=== PATIENT | female | born 1990 | race Caucasian/White ===

== ENCOUNTER 2017-10-28 11:35 | Emergency (ER) | payer OTHER ==
[2017-10-28] MEDS ORDERED: diphenhydrAMINE 50 MG Cap PO ONE (12:36)
--- NOTE | 2017-10-28 12:39 | EDM.PDOC ---
ED HPI GENERAL MEDICAL PROBLEM - General Chief Complaint: Allergic Reaction Stated Complaint: FACIAL SWELLING POSSIBLE ALLERGIC REACTION Time Seen by Provider: 10/28/17 12:20 Source of Information: Reports: Patient History Limitations: Reports: No Limitations - History of Present Illness INITIAL COMMENTS - FREE TEXT/NARRATIVE: 26 y/o F presents with facial swelling and pain. She has a history of severe acne and recently started new medication after seeing a keypuncher in [place]. She saw the keypuncher about 1 week ago. She had a phototherapy treatment at that time. She also started doxycycline, spironolactone, and a topical glycolic acid product. Starting two days ago she started to get a severe breakout and skin sensitivity on her face. She has subjective feeling of tightness and swelling of the facial skin under her chin and on her forehead. No additional new topical products. She was told to expect some facial pain and feeling like a minor sunburn after the phototherapy but was not expecting actual swelling. No fever. No oral lesions. No additional skin rash. No difficulty speaking or swallowing. No cough/wheezing. Face Pain Score (Numeric/FACES): 4 - Related Data Allergies Allergy/AdvReac Type Severity Reaction Status Date / Time ciprofloxacin [From Cipro] Allergy Hives Verified 10/28/17 11:43 heparin Allergy Hives Verified 10/28/17 11:43 iodine Allergy Hives Verified 10/28/17 11:43 levofloxacin [From Levaquin] Allergy Hives Verified 10/28/17 11:43 pentosan polysulfate sodium Allergy Hives Verified 10/28/17 11:43 [From Elmiron] Home Meds: Home Meds Doxycycline [Vibramycin] 100 mg PO DAILY 10/28/17 [History] Prednisone [IJD: predniSONE] 20 mg PO WITHBREAKFAST 10/28/17 [History] Spironolactone 100 mg PO DAILY 10/28/17 [History] Past Medical History - Past Health History Medical/Surgical History: Denies Medical/Surgical History Social & Family History - Tobacco Use Smoking Status *Q: Never Smoker - Recreational Drug Use Other Recreational Drug Type: patient states she has a medical marijuana card that she uses occasionally ED ROS ALLERGIC REACTION - Review of Systems Review Of Systems: See Below Constitutional: Denies: Fever HEENT: Reports: Other (facial pain) Respiratory: Denies: Shortness of Breath, Wheezing, Cough Cardiovascular: Reports: No Symptoms ED EXAM GENERAL NO PERIP PULSE - Physical Exam Exam: See Below Exam Limited By: No Limitations General Appearance: Alert, WD/WN, No Apparent Distress Eye Exam: Bilateral Eye: Normal Inspection Ears: Normal External Exam Nose: Normal Inspection Throat/Mouth: Normal Inspection, Normal Oropharynx, Normal Voice, No Airway Compromise Head: Atraumatic, Normocephalic, Other (diffuse severe comedomal and inflammatory acne primarily affecting chin, jaw line, and forehead. no area of confluent erythema or appreciable swelling or induration. no submandibular tenderness or swelling. ) Neck: Normal Inspection, Supple Respiratory/Chest: No Respiratory Distress Course - Vital Signs Last Recorded V/S: Last Vital Signs Temp 36.9 C 10/28/17 11:47 Pulse 66 10/28/17 12:50 Resp 18 10/28/17 12:50 BP 123/82 10/28/17 12:50 Pulse Ox 98 10/28/17 12:50 - Orders/Labs/Meds Meds: Medications Discontinued Medications Generic Name Dose Route Start Last Admin Trade Name Shelia PRN Reason Stop Dose Admin Diphenhydramine HCl 50 mg 10/28/17 12:36 10/28/17 12:45 Benadryl PO 10/28/17 12:37 50 mg ONETIME ONE Administration - Re-Assessments/Exams Free Text/Narrative Re-Assessment/Exam: 10/28/17 14:28 symptoms are localized to the face, no additional rash or systemic symptoms, doubt that her complaints are related to doxycycline or spironolactone so encouraged her to continue to take these meds. suspect she may have a component of dermatitis due to glycolic acid product, suggested she stop this. she is already on prednisone prescribed by outside provider. advised her to f/u with keypuncher ISABELLE. Departure - Departure Time of Disposition: 12:36 Disposition: Home, Self-Care 01 Clinical Impression: Dermatitis, Cystic acne vulgaris - Discharge Information Instructions: Contact Dermatitis Referrals: PCP,Not In Area [Primary Care Provider] - Forms: ED Department Discharge Additional Instructions: 1. Stop taking topical glycolic acid skin product 2. Continue to take the doxycycline and spironolactone and prednisone 3. Follow up with your keypuncher as soon as possible for further care 4. Return to the ED for a recheck if you have worsening rash, facial swelling, difficulty speaking/swallowing, sores in your mouth, or other concerning symptoms.
== END 2017-10-28 12:50 | disposition home or self-care (01) ==
LOC: JD.ED 11:35
DX: L70.0 Acne vulgaris (principal); L30.9 Dermatitis, unspecified; Z88.1 Allergy status to other antibiotic agents; Z88.8 Allergy status to other drugs, medicaments and biological substances; Z79.899 Other long term (current) drug therapy
CPT/HCPCS: 99283; A9270

== ENCOUNTER 2018-07-06 09:53 | Emergency (ER) | payer OTHER ==
--- NOTE | 2018-07-06 10:34 | EDM.PDOC ---
ED HPI GENERAL MEDICAL PROBLEM - General Chief Complaint: Genitourinary Problem Stated Complaint: SENT BY URGENT CARE FOR URINE INFECTION/AND SOB Time Seen by Provider: 07/06/18 10:09 Source of Information: Reports: Patient, RN Notes Reviewed History Limitations: Reports: Other (The patient speaks in rapid, pressured speech, jumping from subject to subject quickly) - History of Present Illness INITIAL COMMENTS - FREE TEXT/NARRATIVE: The patient reports intermittent chest pain on and off for about 8 months. It is felt in her sternum, and is a pain, not a discomfort. She states that she has had multiple ECGs at multiple urgency departments, all normal. She acknowledges that prior emergency departments have recommended that she follow- up with her PCP, however, she has not. The patient also reports that she is occasionally dizzy. The patient also states that she has a history of interstitial cystitis, therefore she always has dysuria. She states that she gets her urine checked frequently to see if she has a urinary tract infection, and almost never does, however, she states that she did have a urinary tract infection when she was seen at an emergency department in [facility] on 06/19/18. She states that she was treated with an antibiotic, whose name she does not recall, for 10 days, and while her symptoms have improved, she still has dysuria. She would like to have her urine checked to see if in fact the urinary tract infection has been completely treated. The patient states that she was seen at the walk-in clinic, but for reasons unclear, she was sent here. The patient's [employer] Developer is Dr. Cortes. The patient has an appointment to see Dr. Cortes on 07/11/2018 (Friday?). The patient states that she also has a Urologist in [place], but does not recall their name. Groin Pain Score (Numeric/FACES): 3 - Related Data Allergies Allergy/AdvReac Type Severity Reaction Status Date / Time ciprofloxacin [From Cipro] Allergy Hives Verified 07/06/18 10:14 heparin Allergy Bleeding Verified 07/06/18 10:14 iodine Allergy Rash Verified 07/06/18 10:14 levofloxacin [From Levaquin] Allergy Hives Verified 07/06/18 10:14 pentosan polysulfate sodium Allergy Anaphylactic Verified 07/06/18 10:14 [From Elmiron] Shock Home Meds: Home Meds . [No Known Home Meds] 07/06/18 [History] Past Medical History Gastrointestinal History: Reports: GERD Genitourinary History: Reports: Renal Calculus, Other (See Below) (Interstitial cystitis) Musculoskeletal History: Reports: Arthritis (bone spurs) Psychiatric History: Reports: Anxiety, Other (See Below) (Idiopathic urticaria, fibromyalgia) - Past Surgical History Female Surgical History: Reports: Cystoscopy, Other (See Below) (Retrograde cystogram) Social & Family History - Tobacco Use Smoking Status *Q: Never Smoker - Caffeine Use Caffeine Use: Reports: None - Alcohol Use Alcohol Use History: No - Recreational Drug Use Recreational Drug Use: Yes Drug Use in Last 12 Months: Yes Recreational Drug Type: Reports: Marijuana/Hashish (smokes regularly) - Living Situation & Occupation Living situation: Reports: , with Spouse Occupation: Unemployed ED ROS GENERAL - Review of Systems Review Of Systems: ROS reveals no pertinent complaints other than HPI. ED EXAM, GENERAL - Physical Exam Exam: See Below Exam Limited By: No Limitations General Appearance: Alert, WD/WN, No Apparent Distress, Anxious Eye Exam: Bilateral Eye: EOMI, Normal Inspection Ears: Normal External Exam, Hearing Grossly Normal Nose: Normal Inspection Throat/Mouth: Normal Inspection, Normal Lips, Normal Voice, No Airway Compromise Head: Atraumatic, Normocephalic Neck: Normal Inspection, Full Range of Motion Respiratory/Chest: No Respiratory Distress, Lungs Clear, Normal Breath Sounds, No Accessory Muscle Use Cardiovascular: Normal Peripheral Pulses, Regular Rate, Rhythm, No Edema, No Gallop, No JVD, No Murmur, No Rub Peripheral Pulses: 4+: Radial (L), Radial (R) GI/Abdominal: Normal Bowel Sounds, Soft, No Organomegaly, No Distention, No Abnormal Bruit, No Mass, Tender (Minimal, suprapubically only. Nontender elsewhere.) (Female) Exam: Deferred Rectal (Female) Exam: Deferred Back Exam: Normal Inspection, Full Range of Motion. No: CVA Tenderness (L), CVA Tenderness (R) Extremities: Normal Inspection, Normal Range of Motion, No Pedal Edema, Normal Capillary Refill Neurological: Alert, Oriented, Normal Cognition, No Motor/Sensory Deficits Psychiatric: Anxious (Appears jumpy, speaks with rapid, pressured speech, often tripping over her words) Skin Exam: Warm, Dry, Intact, Normal Color, No Rash Course - Vital Signs Last Recorded V/S: Last Vital Signs Temp 36.6 C 07/06/18 10:08 Pulse 64 07/06/18 10:08 Resp 16 07/06/18 10:08 BP 115/91 H 07/06/18 10:08 Pulse Ox 99 07/06/18 10:08 - Orders/Labs/Meds Labs: Laboratory Tests 07/06/18 07/06/18 Range/Units 10:45 10:45 Urine Color Yellow (Yellow) Urine Appearance Clear (Clear) Urine pH 5.5 (5.0-8.0) Ur Specific [place] 1.025 (1.005-1.030) Urine Protein Negative (Negative) Urine Glucose (UA) Negative (Negative) Urine Ketones Trace H (Negative) Urine Occult Blood Negative (Negative) Urine Nitrite Negative (Negative) Urine Bilirubin Negative (Negative) Urine Urobilinogen 0.2 (0.2-1.0) Ur Leukocyte Esterase Negative (Negative) Urine RBC Not seen (0-5) /hpf Urine WBC 0-5 (0-5) /hpf Ur Epithelial Cells 0-5 (0-5) /hpf Urine Bacteria Rare (FEW) /hpf Urine Mucus Few (FEW) /hpf Urine HCG, Qual Negative (NEGATIVE) - Re-Assessments/Exams Free Text/Narrative Re-Assessment/Exam: 07/06/18 10:32 With respect to the patient's dysuria, she is here for a follow-up, to make sure that a previous urinary tract infection, diagnosed 06/19/2018, in [facility], has cleared. I have ordered a urinalysis and urine test. With respect to the patient's intermittent chest pain, the etiology of this is unclear, but her presentation is not at all cardiac, and she states that she has had prior negative ECGs. Follow-up with a PCP was previously recommended, which the patient has not yet done. I do not see an indication to perform a cardiac workup today. 07/06/18 11:50 Urinalysis results discussed with the patient. Today's urinalysis is completely normal, with no suggestion of a UTI. I will discharge her home with the recommendation that she follow-up with her Urologist, for continued treatment for her interstitial cystitis. Departure - Departure Time of Disposition: 11:51 Disposition: Home, Self-Care 01 Condition: Good Clinical Impression: Interstitial cystitis - Discharge Information *PRESCRIPTION DRUG MONITORING PROGRAM REVIEWED*: Not Applicable *COPY OF PRESCRIPTION DRUG MONITORING REPORT IN PATIENT COOKIE: Not Applicable Instructions: Interstitial Cystitis Referrals: Stefanie Cortes MD [Primary Care Provider] - Forms: ED Department Discharge Additional Instructions: You were seen in the emergency room for follow-up after treatment for a UTI. Workup in the ER included a urinalysis and urine test. Your urinalysis was completely normal, with no suggestion of a UTI. Your urine test was negative. We recommend that you follow-up with your Urologist in [place], for continued treatment of your interstitial cystitis. If any other problems, please do not hesitate to return to the ER.
== END 2018-07-06 12:01 | disposition home or self-care (01) ==
LOC: JD.ED 09:53
DX: N30.10 Interstitial cystitis (chronic) without hematuria (principal); Z88.1 Allergy status to other antibiotic agents; Z88.8 Allergy status to other drugs, medicaments and biological substances; Z91.041 Radiographic dye allergy status; Z87.440 Personal history of urinary (tract) infections; Z98.890 Other specified postprocedural states
CPT/HCPCS: 81001; 81025; 99283

== ENCOUNTER 2018-08-21 10:49 | Inpatient (IN) | payer OTHER ==
[2018-08-21] MEDS ORDERED: Sodium Chloride 0.9% 10 ML Syringe FLUSH PRN (10:57)
[2018-08-21] MEDS ORDERED: Sodium Chloride 0.9% 1,000 ML IV SCH (11:00)
--- NOTE | 2018-08-21 12:02 | EDM.PDOCBH ---
ED HPI GENERAL MEDICAL PROBLEM - General Chief Complaint: Behavioral/Psych Stated Complaint: POSS OVERDOSE Time Seen by Provider: 08/21/18 10:51 Source of Information: Reports: Patient, Family History Limitations: Reports: No Limitations - History of Present Illness INITIAL COMMENTS - FREE TEXT/NARRATIVE: The patient presents with an overdose. She was brought in by her . She told me that she took about 3 of her husbands xanax. She later told another nurse that she took 13. The xanax are 2mg. She was slurring her words when she arrived and stumbling in the waiting room. She has been under lots of stress lately. She was fighting with her this morning when she took he pills. She says she was not trying to kill or hurt herself. She just wanted help with her anxiety and stress. She also said she has been having chest pain in the left chest lately. It is a sharp pain when it comes and it is severe. She has no shortness of breath with it. She has no fever, chills or cough. She has no nausea or vomiting. She has never tried to hurt herself in the past. She has no nausea or vomiting. She was not drinking alcohol and she does not use illegal drugs. The time of ingestion was 9am. Onset: Sudden Duration: Hour(s): (9am) Severity: Moderate Improves with: Reports: None Worsens with: Reports: None Associated Symptoms: Reports: No Other Symptoms Headache Pain Score (Numeric/FACES): 7 - Related Data Allergies Allergy/AdvReac Type Severity Reaction Status Date / Time ciprofloxacin [From Cipro] Allergy Hives Verified 07/06/18 10:14 heparin Allergy Bleeding Verified 07/06/18 10:14 iodine Allergy Rash Verified 07/06/18 10:14 levofloxacin [From Levaquin] Allergy Hives Verified 07/06/18 10:14 pentosan polysulfate sodium Allergy Anaphylactic Verified 07/06/18 10:14 [From Elmiron] Shock Home Meds: Home Meds Ondansetron [Zofran ODT] 4 mg PO ASDIRECTED PRN 08/21/18 [History] Past Medical History - Past Health History Medical/Surgical History: Denies Medical/Surgical History Gastrointestinal History: Reports: GERD Genitourinary History: Reports: Renal Calculus, Other (See Below) Other Genitourinary History: BLADDER ISSUES-NON STOP PAIN Musculoskeletal History: Reports: Arthritis Psychiatric History: Reports: Anxiety, Other (See Below) - Past Surgical History Female Surgical History: Reports: Cystoscopy, Other (See Below) Social & Family History - Tobacco Use Smoking Status *Q: Never Smoker - Caffeine Use Caffeine Use: Reports: None - Recreational Drug Use Recreational Drug Use: No - Living Situation & Occupation Living situation: Reports: , with Spouse Occupation: Unemployed ED ROS GENERAL - Review of Systems Review Of Systems: See Below Constitutional: Reports: No Symptoms HEENT: Reports: No Symptoms Respiratory: Reports: No Symptoms Cardiovascular: Reports: No Symptoms Endocrine: Reports: No Symptoms GI/Abdominal: Reports: No Symptoms : Reports: No Symptoms Musculoskeletal: Reports: No Symptoms ED EXAM, BEHAVIORAL HEALTH - Physical Exam Exam: See Below Exam Limited By: No Limitations General Appearance: No Apparent Distress, Other (Drowsy) Ears: Normal External Exam Nose: Normal Inspection Head: Atraumatic, Normocephalic Neck: Normal Inspection Respiratory/Chest: No Respiratory Distress, Lungs Clear, Normal Breath Sounds Cardiovascular: Regular Rate, Rhythm, No Edema, No Murmur GI/Abdominal: Soft, Non-Tender, No Organomegaly, No Mass Back Exam: Normal Inspection Extremities: Normal Inspection Neurological: No Motor/Sensory Deficits, Other (Drussy but arrausable and she will answer questions and follow commands) EKG INTERPRETATION EKG Date: 08/21/18 Time: 11:59 Rhythm: NSR Rate (Beats/Min): 69 [place]: Normal P-Wave: Present QRS: Normal ST-T: Normal QT: Normal COURSE, BEHAVIORAL HEALTH COMP - Course Vital Signs: Last Vital Signs Temp 99.2 F 08/21/18 10:57 Pulse 102 H 08/21/18 10:57 Resp 20 08/21/18 10:57 BP 110/72 08/21/18 10:57 Pulse Ox 99 08/21/18 10:57 Orders, Labs, Meds: Active Orders 24 hr Category Date Time Status Cardiac Monitoring [RC] . DIRECTED Care 08/21/18 10:58 Active EKG Documentation Completion [RC] STAT Care 08/21/18 10:59 Active Insert Urinary Catheter [OM.PC] Stat Care 08/21/18 17:27 Ordered Peripheral IV Care [RC] . DIRECTED Care 08/21/18 10:58 Active Urinary Catheter Assessment [RC] ASDIRECTED Care 08/21/18 17:28 Active Sodium Chloride 0.9% [Normal Saline] 1,000 ml Med 08/21/18 11:00 Active IV .BOLUS Sodium Chloride 0.9% [Saline Flush] Med 08/21/18 10:57 Active 10 ml FLUSH ASDIRECTED PRN Peripheral IV Insertion Adult [OM.PC] Stat Oth 08/21/18 10:57 Ordered Medication Orders Sodium Chloride (Normal Saline) 1,000 mls @ 1,000 mls/hr IV .BOLUS JACKIE Last Admin: 08/21/18 11:14 Dose: 1,000 mls/hr Sodium Chloride (Saline Flush) 10 ml FLUSH ASDIRECTED PRN PRN Reason: Keep Vein Open Last Admin: 08/21/18 11:14 Dose: 10 ml Laboratory Tests 08/21/18 08/21/18 08/21/18 Range/Units 11:00 11:00 11:00 WBC 4.69 (3.98-10.04) K/mm3 RBC 4.64 (3.98-5.22) M/mm3 Hgb 14.1 (11.2-15.7) gm/L Hct 41.1 (34.1-44.9) % MCV 88.6 (79.4-94.8) fl MCH 30.4 (25.6-32.2) pg MCHC 34.3 (32.2-35.5) g/dl RDW Std Deviation 41.5 (36.4-46.3) fL Plt Count 215 (182-369) K/mm3 MPV 9.9 (9.4-12.3) fl Neut % (Auto) 75.1 H (34.0-71.1) % Lymph % (Auto) 15.4 L (19.3-51.7) % [place] % (Auto) 8.7 (4.7-12.5) % Eos % (Auto) 0.4 L (0.7-5.8) Baso % (Auto) 0.2 (0.1-1.2) % Neut # (Auto) 3.52 (1.56-6.13) K/mm3 Lymph # (Auto) 0.72 L (1.18-3.74) K/mm3 [place] # (Auto) 0.41 H (0.24-0.36) K/mm3 Eos # (Auto) 0.02 L (0.04-0.36) K/mm3 Baso # (Auto) 0.01 (0.01-0.08) K/mm3 Sodium 138 (136-145) mEq/L Potassium 3.8 (3.5-5.1) mEq/L Chloride 103 (98-107) mEq/L Carbon Dioxide 20 L (21-32) mEq/L Anion Gap 18.8 H (5-15) BUN 8 (7-18) mg/dL Creatinine 0.7 (0.55-1.02) mg/dL Est Cr Clr Drug Dosing 101.63 mL/min Estimated GFR (MDRD) > 60 (>60) mL/min BUN/Creatinine Ratio 11.4 L (14-18) Glucose 85 (74-106) mg/dL Calcium 8.8 (8.5-10.1) mg/dL Magnesium 1.8 (1.8-2.4) mg/dl Total Bilirubin 0.8 (0.2-1.0) mg/dL AST 19 (15-37) U/L ALT 22 (14-59) U/L Alkaline Phosphatase 59 (46-116) U/L Total Protein 7.4 (6.4-8.2) g/dl Albumin 4.1 (3.4-5.0) g/dl Globulin 3.3 gm/dL Albumin/Globulin Ratio 1.2 (1-2) HCG, Qual (NEGATIVE) Salicylates 1.8 L (2.8-20) mg/dL Urine Opiates Screen (ZLDMGM=619) Ur Buprenorphine Scrn (CUTOFF=10) Ur Oxycodone Screen (PXQ3QQ=741) Urine Methadone Screen (NPPULF=167) Ur Propoxyphene Screen (IWNCTH=999) Acetaminophen 0 L (10-30) ug/mL Ur Barbiturates Screen (VHQFRE=766) Ur Tricyclics Screen (NVTGXQ=896) Ur Phencyclidine Scrn (CUTOFF=25) Ur Amphetamine Screen (ISGBUJ=701) U Methamphetamines Scrn (FNZVCV=866) U Benzodiazepines Scrn (HHNTSV=531) U Cocaine Metab Screen (SSBOME=100) U Marijuana (THC) Screen (CUTOFF=50) Ethyl Alcohol (0.00) gm% 08/21/18 08/21/18 08/21/18 Range/Units 11:00 11:00 17:05 WBC (3.98-10.04) K/mm3 RBC (3.98-5.22) M/mm3 Hgb (11.2-15.7) gm/L Hct (34.1-44.9) % MCV (79.4-94.8) fl MCH (25.6-32.2) pg MCHC (32.2-35.5) g/dl RDW Std Deviation (36.4-46.3) fL Plt Count (182-369) K/mm3 MPV (9.4-12.3) fl Neut % (Auto) (34.0-71.1) % Lymph % (Auto) (19.3-51.7) % [place] % (Auto) (4.7-12.5) % Eos % (Auto) (0.7-5.8) Baso % (Auto) (0.1-1.2) % Neut # (Auto) (1.56-6.13) K/mm3 Lymph # (Auto) (1.18-3.74) K/mm3 [place] # (Auto) (0.24-0.36) K/mm3 Eos # (Auto) (0.04-0.36) K/mm3 Baso # (Auto) (0.01-0.08) K/mm3 Sodium (136-145) mEq/L Potassium (3.5-5.1) mEq/L Chloride (98-107) mEq/L Carbon Dioxide (21-32) mEq/L Anion Gap (5-15) BUN (7-18) mg/dL Creatinine (0.55-1.02) mg/dL Est Cr Clr Drug Dosing mL/min Estimated GFR (MDRD) (>60) mL/min BUN/Creatinine Ratio (14-18) Glucose (74-106) mg/dL Calcium (8.5-10.1) mg/dL Magnesium (1.8-2.4) mg/dl Total Bilirubin (0.2-1.0) mg/dL AST (15-37) U/L ALT (14-59) U/L Alkaline Phosphatase (46-116) U/L Total Protein (6.4-8.2) g/dl Albumin (3.4-5.0) g/dl Globulin gm/dL Albumin/Globulin Ratio (1-2) HCG, Qual Negative (NEGATIVE) Salicylates (2.8-20) mg/dL Urine Opiates Screen Negative (CPUMJO=488) Ur Buprenorphine Scrn Negative (CUTOFF=10) Ur Oxycodone Screen Negative (YFD5LQ=616) Urine Methadone Screen Negative (ZVFLGJ=326) Ur Propoxyphene Screen Negative (KQTROS=160) Acetaminophen (10-30) ug/mL Ur Barbiturates Screen Negative (NXGIMA=409) Ur Tricyclics Screen Negative (HOAHUC=137) Ur Phencyclidine Scrn Negative (CUTOFF=25) Ur Amphetamine Screen Negative (GAKVRV=479) U Methamphetamines Scrn Negative (FJMSUK=621) U Benzodiazepines Scrn Presumptive positive H (WFKDWL=952) U Cocaine Metab Screen Negative (KGVMFE=414) U Marijuana (THC) Screen Presumptive positive H (CUTOFF=50) Ethyl Alcohol 0.00 (0.00) gm% Medications Generic Name Dose Route Start Last Admin Trade Name Freq PRN Reason Stop Dose Admin Sodium Chloride 1,000 mls @ 1,000 mls/hr 08/21/18 11:00 08/21/18 11:14 Normal Saline IV 1,000 mls/hr .BOLUS JACKIE Administration Sodium Chloride 10 ml 08/21/18 10:57 08/21/18 11:14 Saline Flush FLUSH 10 ml ASDIRECTED PRN Administration Keep Vein Open Re-Assessment/Re-Exam: I ordered an IV NS 1L bolus, EKG, CXR, and labs. I called poison control at around 12 and they said peak affect is over she should be slowly getting better. Her CBC and CMP look good. Her Hcg is negative. Her salicylate and acetaminophen are negative. Her UDS is positive for benzos and marijuana. Her ETOH is zero. I called poison control and they said peak is within the first 2 hours. She should not get much worse after that. She slept for a few hours. I tried to wake her up but she will just open her eye slightly and moan. I cannot send her home like this. I called Dr Hollins and she agreed to the admission to ICU. I also consulted Dr Hoffman. He says he is traveling but he will be available late afternoon to evening tomorrow. Departure - Departure Time of Disposition: 18:40 Disposition: Admitted As Inpatient 68 Condition: Serious Clinical Impression: Overdose Qualifiers: Encounter type: initial encounter Injury intent: accidental or unintentional Qualified Code(s): T50.901A - Poisoning by unspecified drugs, medicaments and biological substances, accidental (unintentional), initial encounter Altered mental status Qualifiers: Altered mental status type: somnolence Qualified Code(s): R40.0 - Somnolence - Discharge Information Referrals: PCP,None [Primary Care Provider] - Forms: ED Department Discharge - My Orders Last 24 Hours: My Active Orders 08/21/18 10:57 Sodium Chloride 0.9% [Saline Flush] 10 ml FLUSH ASDIRECTED PRN Peripheral IV Insertion Adult [OM.PC] Stat 08/21/18 10:58 Cardiac Monitoring [RC] . DIRECTED Peripheral IV Care [RC] . DIRECTED 08/21/18 10:59 EKG Documentation Completion [RC] STAT 08/21/18 11:00 Sodium Chloride 0.9% [Normal Saline] 1,000 ml IV .BOLUS 08/21/18 17:27 Insert Urinary Catheter [OM.PC] Stat 08/21/18 17:28 Urinary Catheter Assessment [RC] ASDIRECTED - Assessment/Plan Last 24 Hours: My Active Orders 08/21/18 10:57 Sodium Chloride 0.9% [Saline Flush] 10 ml FLUSH ASDIRECTED PRN Peripheral IV Insertion Adult [OM.PC] Stat 08/21/18 10:58 Cardiac Monitoring [RC] . DIRECTED Peripheral IV Care [RC] . DIRECTED 08/21/18 10:59 EKG Documentation Completion [RC] STAT 08/21/18 11:00 Sodium Chloride 0.9% [Normal Saline] 1,000 ml IV .BOLUS 08/21/18 17:27 Insert Urinary Catheter [OM.PC] Stat 08/21/18 17:28 Urinary Catheter Assessment [RC] ASDIRECTED
--- NOTE | 2018-08-21 12:36 | CR ---
Chest: Frontal view of the chest was obtained utilizing portable technique. Comparison: No previous study. Heart size and mediastinum are normal. Lungs are clear. Bony structures are unremarkable for the patient's age. Impression: 1. Nothing acute is seen on portable chest x-ray. Diagnostic code #1
[2018-08-21 14:45] LABS: ACETAMINOPHEN 0 ug/mL (10-30)
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
[2018-08-21] MEDS: Sodium Chloride 0.9% 1,000 ML IV SCH (20:18)
[2018-08-22] MEDS: Sodium Chloride 0.9% 1,000 ML IV SCH ×3 (03:38→20:49)
[2018-08-22] MEDS ORDERED: Thiamine 200 MG/2 ML MDV IV SCH (09:00)
[2018-08-22] MEDS ORDERED: Thiamine 100 MG in Sodium Chloride 0.9% 100 ML IV ONE (09:00)
[2018-08-22] MEDS ORDERED: Thiamine 200 MG/2 ML MDV IVPUSH ONE (09:00)
[2018-08-22] MEDS: Folic Acid 1 MG Tab PO SCH (09:57)
--- NOTE | 2018-08-22 10:32 | PCM.PN ---
- General Info Date of Service: 08/22/18 Subjective Update: Complains of pain with urination; denies discharge. 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 Functional Status: Reports: Ambulating, Urinating - Review of Systems General: Reports: No Symptoms HEENT: Reports: No Symptoms Pulmonary: Reports: No Symptoms Cardiovascular: Reports: No Symptoms Gastrointestinal: Reports: No Symptoms Genitourinary: Reports: No Symptoms Musculoskeletal: Reports: No Symptoms Skin: Reports: No Symptoms Neurological: Reports: No Symptoms Psychiatric: Reports: No Symptoms - Patient Data Vitals - Most Recent: Last Vital Signs Temp 36.6 C 08/22/18 08:00 Pulse 68 08/22/18 03:41 Resp 12 08/22/18 08:00 BP 117/65 08/22/18 08:00 Pulse Ox 99 08/22/18 08:00 Weight - Most Recent: 51.301 kg I&O - Last 24 Hours: Intake & Output 08/21/18 08/22/18 08/22/18 22:59 06:59 14:59 Intake Total 910 Output Total 800 Balance 110 Lab Results Last 24 Hours: Laboratory Results - last 24 hr 08/21/18 08/21/18 08/21/18 Range/Units 11:00 11:00 11:00 WBC 4.69 (3.98-10.04) K/mm3 RBC 4.64 (3.98-5.22) M/mm3 Hgb 14.1 (11.2-15.7) gm/L Hct 41.1 (34.1-44.9) % MCV 88.6 (79.4-94.8) fl MCH 30.4 (25.6-32.2) pg MCHC 34.3 (32.2-35.5) g/dl RDW Std Deviation 41.5 (36.4-46.3) fL Plt Count 215 (182-369) K/mm3 MPV 9.9 (9.4-12.3) fl Neut % (Auto) 75.1 H (34.0-71.1) % Lymph % (Auto) 15.4 L (19.3-51.7) % [place] % (Auto) 8.7 (4.7-12.5) % Eos % (Auto) 0.4 L (0.7-5.8) Baso % (Auto) 0.2 (0.1-1.2) % Neut # (Auto) 3.52 (1.56-6.13) K/mm3 Lymph # (Auto) 0.72 L (1.18-3.74) K/mm3 [place] # (Auto) 0.41 H (0.24-0.36) K/mm3 Eos # (Auto) 0.02 L (0.04-0.36) K/mm3 Baso # (Auto) 0.01 (0.01-0.08) K/mm3 Sodium 138 (136-145) mEq/L Potassium 3.8 (3.5-5.1) mEq/L Chloride 103 (98-107) mEq/L Carbon Dioxide 20 L (21-32) mEq/L Anion Gap 18.8 H (5-15) BUN 8 (7-18) mg/dL Creatinine 0.7 (0.55-1.02) mg/dL Est Cr Clr Drug Dosing 101.63 mL/min Estimated GFR (MDRD) > 60 (>60) mL/min BUN/Creatinine Ratio 11.4 L (14-18) Glucose 85 (74-106) mg/dL Lactic Acid (0.4-2.0) mmol/L Calcium 8.8 (8.5-10.1) mg/dL Magnesium 1.8 (1.8-2.4) mg/dl Total Bilirubin 0.8 (0.2-1.0) mg/dL AST 19 (15-37) U/L ALT 22 (14-59) U/L Alkaline Phosphatase 59 (46-116) U/L C-Reactive Protein (<1.0) mg/dL Total Protein 7.4 (6.4-8.2) g/dl Albumin 4.1 (3.4-5.0) g/dl Globulin 3.3 gm/dL Albumin/Globulin Ratio 1.2 (1-2) HCG, Qual (NEGATIVE) Urine Color (Yellow) Urine Appearance (Clear) Urine pH (5.0-8.0) Ur Specific [place] (1.005-1.030) Urine Protein (Negative) Urine Glucose (UA) (Negative) Urine Ketones (Negative) Urine Occult Blood (Negative) Urine Nitrite (Negative) Urine Bilirubin (Negative) Urine Urobilinogen (0.2-1.0) Ur Leukocyte Esterase (Negative) Urine RBC (0-5) /hpf Urine WBC (0-5) /hpf Ur Epithelial Cells (0-5) /hpf Amorphous Sediment (NOT SEEN) /hpf Urine Bacteria (FEW) /hpf Urine Mucus (FEW) /hpf Salicylates 1.8 L (2.8-20) mg/dL Urine Opiates Screen (QXDXKK=512) Ur Buprenorphine Scrn (CUTOFF=10) Ur Oxycodone Screen (MMT1TE=722) Urine Methadone Screen (HIETJS=819) Ur Propoxyphene Screen (KYWTCZ=870) Acetaminophen 0 L (10-30) ug/mL Ur Barbiturates Screen (VNEFHQ=568) Ur Tricyclics Screen (ENXPJM=586) Ur Phencyclidine Scrn (CUTOFF=25) Ur Amphetamine Screen (UFHQHR=845) U Methamphetamines Scrn (NOFPWW=818) U Benzodiazepines Scrn (LAGGQV=598) U Cocaine Metab Screen (OWRMRZ=508) U Marijuana (THC) Screen (CUTOFF=50) Ethyl Alcohol (0.00) gm% 08/21/18 08/21/18 08/21/18 Range/Units 11:00 11:00 17:05 WBC (3.98-10.04) K/mm3 RBC (3.98-5.22) M/mm3 Hgb (11.2-15.7) gm/L Hct (34.1-44.9) % MCV (79.4-94.8) fl MCH (25.6-32.2) pg MCHC (32.2-35.5) g/dl RDW Std Deviation (36.4-46.3) fL Plt Count (182-369) K/mm3 MPV (9.4-12.3) fl Neut % (Auto) (34.0-71.1) % Lymph % (Auto) (19.3-51.7) % [place] % (Auto) (4.7-12.5) % Eos % (Auto) (0.7-5.8) Baso % (Auto) (0.1-1.2) % Neut # (Auto) (1.56-6.13) K/mm3 Lymph # (Auto) (1.18-3.74) K/mm3 [place] # (Auto) (0.24-0.36) K/mm3 Eos # (Auto) (0.04-0.36) K/mm3 Baso # (Auto) (0.01-0.08) K/mm3 Sodium (136-145) mEq/L Potassium (3.5-5.1) mEq/L Chloride (98-107) mEq/L Carbon Dioxide (21-32) mEq/L Anion Gap (5-15) BUN (7-18) mg/dL Creatinine (0.55-1.02) mg/dL Est Cr Clr Drug Dosing mL/min Estimated GFR (MDRD) (>60) mL/min BUN/Creatinine Ratio (14-18) Glucose (74-106) mg/dL Lactic Acid (0.4-2.0) mmol/L Calcium (8.5-10.1) mg/dL Magnesium (1.8-2.4) mg/dl Total Bilirubin (0.2-1.0) mg/dL AST (15-37) U/L ALT (14-59) U/L Alkaline Phosphatase (46-116) U/L C-Reactive Protein (<1.0) mg/dL Total Protein (6.4-8.2) g/dl Albumin (3.4-5.0) g/dl Globulin gm/dL Albumin/Globulin Ratio (1-2) HCG, Qual Negative (NEGATIVE) Urine Color (Yellow) Urine Appearance (Clear) Urine pH (5.0-8.0) Ur Specific [place] (1.005-1.030) Urine Protein (Negative) Urine Glucose (UA) (Negative) Urine Ketones (Negative) Urine Occult Blood (Negative) Urine Nitrite (Negative) Urine Bilirubin (Negative) Urine Urobilinogen (0.2-1.0) Ur Leukocyte Esterase (Negative) Urine RBC (0-5) /hpf Urine WBC (0-5) /hpf Ur Epithelial Cells (0-5) /hpf Amorphous Sediment (NOT SEEN) /hpf Urine Bacteria (FEW) /hpf Urine Mucus (FEW) /hpf Salicylates (2.8-20) mg/dL Urine Opiates Screen Negative (GMKMHJ=669) Ur Buprenorphine Scrn Negative (CUTOFF=10) Ur Oxycodone Screen Negative (BQM1DK=855) Urine Methadone Screen Negative (MLUQFW=125) Ur Propoxyphene Screen Negative (YYKEXJ=191) Acetaminophen (10-30) ug/mL Ur Barbiturates Screen Negative (QKULOC=258) Ur Tricyclics Screen Negative (GBTHQI=954) Ur Phencyclidine Scrn Negative (CUTOFF=25) Ur Amphetamine Screen Negative (BNXILR=000) U Methamphetamines Scrn Negative (EVHGLW=337) U Benzodiazepines Scrn Presumptive positive H (ZQICRM=570) U Cocaine Metab Screen Negative (WVSWSB=412) U Marijuana (THC) Screen Presumptive positive H (CUTOFF=50) Ethyl Alcohol 0.00 (0.00) gm% 08/22/18 08/22/18 08/22/18 Range/Units 05:45 05:45 05:45 WBC 3.51 L (3.98-10.04) K/mm3 RBC 4.57 (3.98-5.22) M/mm3 Hgb 13.7 (11.2-15.7) gm/L Hct 41.5 (34.1-44.9) % MCV 90.8 (79.4-94.8) fl MCH 30.0 (25.6-32.2) pg MCHC 33.0 (32.2-35.5) g/dl RDW Std Deviation 43.8 (36.4-46.3) fL Plt Count 219 (182-369) K/mm3 MPV 10.4 (9.4-12.3) fl Neut % (Auto) 57.2 (34.0-71.1) % Lymph % (Auto) 29.3 (19.3-51.7) % [place] % (Auto) 12.3 (4.7-12.5) % Eos % (Auto) 0.9 (0.7-5.8) Baso % (Auto) 0.3 (0.1-1.2) % Neut # (Auto) 2.01 (1.56-6.13) K/mm3 Lymph # (Auto) 1.03 L (1.18-3.74) K/mm3 [place] # (Auto) 0.43 H (0.24-0.36) K/mm3 Eos # (Auto) 0.03 L (0.04-0.36) K/mm3 Baso # (Auto) 0.01 (0.01-0.08) K/mm3 Sodium 139 (136-145) mEq/L Potassium 3.9 (3.5-5.1) mEq/L Chloride 105 (98-107) mEq/L Carbon Dioxide 17 L (21-32) mEq/L Anion Gap 20.9 H (5-15) BUN 12 (7-18) mg/dL Creatinine 0.8 (0.55-1.02) mg/dL Est Cr Clr Drug Dosing 87.06 mL/min Estimated GFR (MDRD) > 60 (>60) mL/min BUN/Creatinine Ratio 15.0 (14-18) Glucose 63 L (74-106) mg/dL Lactic Acid 0.8 (0.4-2.0) mmol/L Calcium 8.7 (8.5-10.1) mg/dL Magnesium 1.8 (1.8-2.4) mg/dl Total Bilirubin (0.2-1.0) mg/dL AST (15-37) U/L ALT (14-59) U/L Alkaline Phosphatase (46-116) U/L C-Reactive Protein 1.0 (<1.0) mg/dL Total Protein (6.4-8.2) g/dl Albumin (3.4-5.0) g/dl Globulin gm/dL Albumin/Globulin Ratio (1-2) HCG, Qual (NEGATIVE) Urine Color (Yellow) Urine Appearance (Clear) Urine pH (5.0-8.0) Ur Specific [place] (1.005-1.030) Urine Protein (Negative) Urine Glucose (UA) (Negative) Urine Ketones (Negative) Urine Occult Blood (Negative) Urine Nitrite (Negative) Urine Bilirubin (Negative) Urine Urobilinogen (0.2-1.0) Ur Leukocyte Esterase (Negative) Urine RBC (0-5) /hpf Urine WBC (0-5) /hpf Ur Epithelial Cells (0-5) /hpf Amorphous Sediment (NOT SEEN) /hpf Urine Bacteria (FEW) /hpf Urine Mucus (FEW) /hpf Salicylates (2.8-20) mg/dL Urine Opiates Screen (FGPUSA=107) Ur Buprenorphine Scrn (CUTOFF=10) Ur Oxycodone Screen (MNL8XW=602) Urine Methadone Screen (CLHTEQ=937) Ur Propoxyphene Screen (OSUMLX=641) Acetaminophen (10-30) ug/mL Ur Barbiturates Screen (NOKDYK=745) Ur Tricyclics Screen (ZKPQYS=176) Ur Phencyclidine Scrn (CUTOFF=25) Ur Amphetamine Screen (SBWNLL=692) U Methamphetamines Scrn (FNKNDN=045) U Benzodiazepines Scrn (BKNAWS=571) U Cocaine Metab Screen (ERYISK=861) U Marijuana (THC) Screen (CUTOFF=50) Ethyl Alcohol (0.00) gm% 08/22/18 Range/Units 09:50 WBC (3.98-10.04) K/mm3 RBC (3.98-5.22) M/mm3 Hgb (11.2-15.7) gm/L Hct (34.1-44.9) % MCV (79.4-94.8) fl MCH (25.6-32.2) pg MCHC (32.2-35.5) g/dl RDW Std Deviation (36.4-46.3) fL Plt Count (182-369) K/mm3 MPV (9.4-12.3) fl Neut % (Auto) (34.0-71.1) % Lymph % (Auto) (19.3-51.7) % [place] % (Auto) (4.7-12.5) % Eos % (Auto) (0.7-5.8) Baso % (Auto) (0.1-1.2) % Neut # (Auto) (1.56-6.13) K/mm3 Lymph # (Auto) (1.18-3.74) K/mm3 [place] # (Auto) (0.24-0.36) K/mm3 Eos # (Auto) (0.04-0.36) K/mm3 Baso # (Auto) (0.01-0.08) K/mm3 Sodium (136-145) mEq/L Potassium (3.5-5.1) mEq/L Chloride (98-107) mEq/L Carbon Dioxide (21-32) mEq/L Anion Gap (5-15) BUN (7-18) mg/dL Creatinine (0.55-1.02) mg/dL Est Cr Clr Drug Dosing mL/min Estimated GFR (MDRD) (>60) mL/min BUN/Creatinine Ratio (14-18) Glucose (74-106) mg/dL Lactic Acid (0.4-2.0) mmol/L Calcium (8.5-10.1) mg/dL Magnesium (1.8-2.4) mg/dl Total Bilirubin (0.2-1.0) mg/dL AST (15-37) U/L ALT (14-59) U/L Alkaline Phosphatase (46-116) U/L C-Reactive Protein (<1.0) mg/dL Total Protein (6.4-8.2) g/dl Albumin (3.4-5.0) g/dl Globulin gm/dL Albumin/Globulin Ratio (1-2) HCG, Qual (NEGATIVE) Urine Color Yellow (Yellow) Urine Appearance Clear (Clear) Urine pH 6.0 (5.0-8.0) Ur Specific [place] 1.015 (1.005-1.030) Urine Protein Negative (Negative) Urine Glucose (UA) Negative (Negative) Urine Ketones 4+ H (Negative) Urine Occult Blood 2+ H (Negative) Urine Nitrite Negative (Negative) Urine Bilirubin Negative (Negative) Urine Urobilinogen 0.2 (0.2-1.0) Ur Leukocyte Esterase 1+ H (Negative) Urine RBC 10-20 H (0-5) /hpf Urine WBC 5-10 H (0-5) /hpf Ur Epithelial Cells 0-5 (0-5) /hpf Amorphous Sediment Few H (NOT SEEN) /hpf Urine Bacteria Moderate H (FEW) /hpf Urine Mucus Few (FEW) /hpf Salicylates (2.8-20) mg/dL Urine Opiates Screen (OKNTRT=853) Ur Buprenorphine Scrn (CUTOFF=10) Ur Oxycodone Screen (MCA9CU=632) Urine Methadone Screen (RTFVOM=228) Ur Propoxyphene Screen (FCPKIH=437) Acetaminophen (10-30) ug/mL Ur Barbiturates Screen (ZAPBUV=731) Ur Tricyclics Screen (ZSSWZB=743) Ur Phencyclidine Scrn (CUTOFF=25) Ur Amphetamine Screen (BJMQZL=535) U Methamphetamines Scrn (OIYGOI=098) U Benzodiazepines Scrn (HBDDAH=265) U Cocaine Metab Screen (WLEFXQ=114) U Marijuana (THC) Screen (CUTOFF=50) Ethyl Alcohol (0.00) gm% Med Orders - Current: Current Medications Folic Acid (Folic Acid) 1 mg PO DAILY [facility] Last Admin: 08/22/18 09:57 Dose: 1 mg Sodium Chloride (Normal Saline) 1,000 mls @ 1,000 mls/hr IV .BOLUS JACKIE Last Admin: 08/21/18 11:14 Dose: 1,000 mls/hr Sodium Chloride (Normal Saline) 1,000 mls @ 125 mls/hr IV ASDIRECTED JACKIE Last Admin: 08/22/18 03:38 Dose: 125 mls/hr Sodium Chloride (Saline Flush) 10 ml FLUSH ASDIRECTED PRN PRN Reason: Keep Vein Open Last Admin: 08/21/18 11:14 Dose: 10 ml Discontinued Medications Thiamine HCl 100 mg/ Sodium (Chloride) 101 mls @ 202 mls/hr IV DAILY ONE Stop: 08/22/18 09:29 Thiamine HCl (Vitamin B-1) 100 mg IV DAILY JACKIE Thiamine HCl (Vitamin B-1) 100 mg IVPUSH ONETIME ONE Stop: 08/22/18 09:01 Last Admin: 08/22/18 09:57 Dose: 100 mg - Exam Quality Assessment: Supplemental Oxygen, DVT Prophylaxis General: Alert, Oriented, Cooperative, No Acute Distress HEENT: Pupils Equal, Pupils Reactive, EOMI Neck: Trachea Midline, No JVD Lungs: Normal Respiratory Effort Cardiovascular: Regular Rate GI/Abdominal Exam: Normal Bowel Sounds, Soft, Non-Tender, No Organomegaly, No Distention (Female) Exam: Deferred Back Exam: Normal Inspection Extremities: Normal Inspection, Non-Tender, Normal Capillary Refill Skin: Warm Neurological: No New Focal Deficit, Normal Speech Psy/Mental Status: Alert - Problem List & Annotations (1) Urinary tract infection SNOMED Code(s): 15740802 Code(s): N39.0 - URINARY TRACT INFECTION, SITE NOT SPECIFIED Status: Acute Current Visit: Yes (2) Altered mental status SNOMED Code(s): 763271949 Code(s): R41.82 - ALTERED MENTAL STATUS, UNSPECIFIED Status: Acute Current Visit: Yes Qualifiers: Altered mental status type: somnolence Qualified Code(s): R40.0 - Somnolence (3) Benzodiazepine (tranquilizer) overdose SNOMED Code(s): 346641694 Code(s): T42.4X1A - POISONING BY BENZODIAZEPINES, ACCIDENTAL, INIT Status: Acute Current Visit: Yes (4) Hashish abuse SNOMED Code(s): 17086915 Code(s): F12.10 - CANNABIS ABUSE, UNCOMPLICATED Status: Acute Current Visit: Yes (5) Marijuana abuse SNOMED Code(s): 98740928 Code(s): F12.10 - CANNABIS ABUSE, UNCOMPLICATED Status: Acute Current Visit: Yes (6) Overdose SNOMED Code(s): 80899771 Code(s): T50.901A - POISONING BY UNSP DRUG/MEDS/BIOL SUBST, ACCIDENTAL, INIT Status: Acute Current Visit: Yes Qualifiers: Encounter type: initial encounter Injury intent: accidental or unintentional Qualified Code(s): T50.901A - Poisoning by unspecified drugs, medicaments and biological substances, accidental (unintentional), initial encounter (7) Suicide attempt by drug ingestion SNOMED Code(s): 34875813, 98424056 Code(s): T50.902A - POISONING BY UNSP DRUG/MEDS/BIOL SUBST, SELF-HARM, INIT Status: Acute Current Visit: Yes (8) Interstitial cystitis SNOMED Code(s): 251886343 Code(s): N30.10 - INTERSTITIAL CYSTITIS (CHRONIC) WITHOUT HEMATURIA Status : Acute Current Visit: No - Problem List Review Problem List Initiated/Reviewed/Updated: Yes - My Orders Last 24 Hours: My Active Orders 08/21/18 19:05 Notify Provider Consults [RC] ASDIRECTED Consult to Physician [CONS] Routine 08/21/18 19:08 Aspiration Precautions [RC] ASDIRECTED Head of Bed Elevation [RC] ASDIRECTED 08/21/18 19:10 Seizure Precautions [OM.PC] Routine 08/21/18 19:15 Sodium Chloride 0.9% [Normal Saline] 1,000 ml IV ASDIRECTED 08/21/18 19:49 Consult to Case Management/Cook Pickled Meat [CONS] Routine 08/21/18 21:54 Code Status [Resuscitation Status] Routine 08/22/18 04:58 Consult SANE Nurse [CONS] Routine 08/22/18 08:00 EKG 12 Lead [EKG Documentation Completion] [RC] ROUTINE 08/22/18 09:00 Folic Acid 1 mg PO DAILY 08/22/18 09:50 CULTURE URINE [RM] Routine 08/22/18 Breakfast Regular Diet [DIET] 08/23/18 05:00 BMP [BASIC METABOLIC PANEL,BMP] [CHEM] DAILY CBC WITH AUTO DIFF [HEME] DAILY CRP [C-REACTIVE PROTEIN] [CHEM] DAILY LACTIC ACID [CHEM] DAILY MAGNESIUM [CHEM] DAILY 08/23/18 08:00 CXR [Chest 1V Frontal] [CR] Routine 08/23/18 10:00 Consult for Substance Abuse [CONS] Routine 08/24/18 05:00 BMP [BASIC METABOLIC PANEL,BMP] [CHEM] DAILY CBC WITH AUTO DIFF [HEME] DAILY CRP [C-REACTIVE PROTEIN] [CHEM] DAILY LACTIC ACID [CHEM] DAILY MAGNESIUM [CHEM] DAILY 08/25/18 05:00 BMP [BASIC METABOLIC PANEL,BMP] [CHEM] DAILY CBC WITH AUTO DIFF [HEME] DAILY CRP [C-REACTIVE PROTEIN] [CHEM] DAILY LACTIC ACID [CHEM] DAILY MAGNESIUM [CHEM] DAILY 08/26/18 05:00 BMP [BASIC METABOLIC PANEL,BMP] [CHEM] DAILY CBC WITH AUTO DIFF [HEME] DAILY CRP [C-REACTIVE PROTEIN] [CHEM] DAILY LACTIC ACID [CHEM] DAILY MAGNESIUM [CHEM] DAILY - Plan Plan:: Impression: Acute mental status change--resolved Benzodiazepine overdose, suicide attempt History of Marijuana/Hashish abuse, query dependence AUTI Query Home environment, jorgito RODGERS RN Chronic Hx of Interstitial cystitis Plan: Rocephin Pyridium Advance diet Psych consult re; suicide attempt--pending Substance abuse consult--pending Will need ANESTHESIA DIRECTOR/Urology as OP follow up CIWA protocol Consult SW/CM DVT/GI prophylaxis
[2018-08-22] MEDS: Phenazopyridine 95 MG Tab PO SCH ×2 (15:52→19:03)
[2018-08-22] MEDS: cefTRIAXone 2 GM in Sodium Chloride 0.9% 100 ML IV SCH (15:52)
[2018-08-22] MEDS: LORazepam 2 MG/ML SDV IVPUSH PRN (19:47)
[2018-08-22] MEDS: Thiamine 100 MG Tab PO SCH (20:49)
[2018-08-22] MEDS: Topiramate 25 MG Tab PO SCH (20:49)
[2018-08-23] MEDS: Topiramate 25 MG Tab PO SCH ×2 (08:49→21:59)
[2018-08-23] MEDS: LORazepam 2 MG/ML SDV IVPUSH PRN ×3 (08:49→22:06)
[2018-08-23] MEDS: Folic Acid 1 MG Tab PO SCH (08:49)
[2018-08-23] MEDS: Phenazopyridine 95 MG Tab PO SCH ×3 (08:49→18:05)
[2018-08-23] MEDS ORDERED: Magnesium Sulfate/Water 4 GM in Premix Bag 1 BAG IV ONE ×2 (10:03→11:00)
--- NOTE | 2018-08-23 10:04 | PCM.PN ---
- General Info Date of Service: 08/23/18 Functional Status: Reports: Tolerating Diet, Ambulating, Urinating - Review of Systems General: Reports: No Symptoms HEENT: Reports: No Symptoms Pulmonary: Reports: No Symptoms Cardiovascular: Reports: No Symptoms Gastrointestinal: Reports: No Symptoms Genitourinary: Reports: No Symptoms Musculoskeletal: Reports: No Symptoms Skin: Reports: No Symptoms Neurological: Reports: No Symptoms Psychiatric: Reports: Anxiety - Patient Data Vitals - Most Recent: Last Vital Signs Temp 37.1 C 08/23/18 08:00 Pulse 64 08/23/18 08:00 Resp 16 08/23/18 08:00 BP 94/45 L 08/23/18 08:00 Pulse Ox 100 08/23/18 08:00 Weight - Most Recent: 51.301 kg I&O - Last 24 Hours: Intake & Output 08/22/18 08/23/18 08/23/18 22:59 06:59 14:59 Intake Total 2637 Output Total 1050 Balance 1587 Lab Results Last 24 Hours: Laboratory Results - last 24 hr 08/22/18 08/23/18 08/23/18 Range/Units 09:50 05:30 05:30 WBC 3.69 L (3.98-10.04) K/mm3 RBC 3.93 L (3.98-5.22) M/mm3 Hgb 11.7 (11.2-15.7) gm/L Hct 35.6 (34.1-44.9) % MCV 90.6 (79.4-94.8) fl MCH 29.8 (25.6-32.2) pg MCHC 32.9 (32.2-35.5) g/dl RDW Std Deviation 42.4 (36.4-46.3) fL Plt Count 198 (182-369) K/mm3 MPV 10.4 (9.4-12.3) fl Neut % (Auto) 44.7 (34.0-71.1) % Lymph % (Auto) 37.7 (19.3-51.7) % [place] % (Auto) 14.9 H (4.7-12.5) % Eos % (Auto) 1.9 (0.7-5.8) Baso % (Auto) 0.5 (0.1-1.2) % Neut # (Auto) 1.65 (1.56-6.13) K/mm3 Lymph # (Auto) 1.39 (1.18-3.74) K/mm3 [place] # (Auto) 0.55 H (0.24-0.36) K/mm3 Eos # (Auto) 0.07 (0.04-0.36) K/mm3 Baso # (Auto) 0.02 (0.01-0.08) K/mm3 Sodium 139 (136-145) mEq/L Potassium 4.1 (3.5-5.1) mEq/L Chloride 108 H (98-107) mEq/L Carbon Dioxide 18 L (21-32) mEq/L Anion Gap 17.1 H (5-15) BUN 6 L (7-18) mg/dL Creatinine 0.7 (0.55-1.02) mg/dL Est Cr Clr Drug Dosing 99.50 mL/min Estimated GFR (MDRD) > 60 (>60) mL/min BUN/Creatinine Ratio 8.6 L (14-18) Glucose 58 L (74-106) mg/dL Lactic Acid (0.4-2.0) mmol/L Calcium 7.9 L (8.5-10.1) mg/dL Magnesium 1.5 L (1.8-2.4) mg/dl C-Reactive Protein < 0.2 (<1.0) mg/dL Urine Color Yellow (Yellow) Urine Appearance Clear (Clear) Urine pH 6.0 (5.0-8.0) Ur Specific [place] 1.015 (1.005-1.030) Urine Protein Negative (Negative) Urine Glucose (UA) Negative (Negative) Urine Ketones 4+ H (Negative) Urine Occult Blood 2+ H (Negative) Urine Nitrite Negative (Negative) Urine Bilirubin Negative (Negative) Urine Urobilinogen 0.2 (0.2-1.0) Ur Leukocyte Esterase 1+ H (Negative) Urine RBC 10-20 H (0-5) /hpf Urine WBC 5-10 H (0-5) /hpf Ur Epithelial Cells 0-5 (0-5) /hpf Amorphous Sediment Few H (NOT SEEN) /hpf Urine Bacteria Moderate H (FEW) /hpf Urine Mucus Few (FEW) /hpf 08/23/18 Range/Units 05:30 WBC (3.98-10.04) K/mm3 RBC (3.98-5.22) M/mm3 Hgb (11.2-15.7) gm/L Hct (34.1-44.9) % MCV (79.4-94.8) fl MCH (25.6-32.2) pg MCHC (32.2-35.5) g/dl RDW Std Deviation (36.4-46.3) fL Plt Count (182-369) K/mm3 MPV (9.4-12.3) fl Neut % (Auto) (34.0-71.1) % Lymph % (Auto) (19.3-51.7) % [place] % (Auto) (4.7-12.5) % Eos % (Auto) (0.7-5.8) Baso % (Auto) (0.1-1.2) % Neut # (Auto) (1.56-6.13) K/mm3 Lymph # (Auto) (1.18-3.74) K/mm3 [place] # (Auto) (0.24-0.36) K/mm3 Eos # (Auto) (0.04-0.36) K/mm3 Baso # (Auto) (0.01-0.08) K/mm3 Sodium (136-145) mEq/L Potassium (3.5-5.1) mEq/L Chloride (98-107) mEq/L Carbon Dioxide (21-32) mEq/L Anion Gap (5-15) BUN (7-18) mg/dL Creatinine (0.55-1.02) mg/dL Est Cr Clr Drug Dosing mL/min Estimated GFR (MDRD) (>60) mL/min BUN/Creatinine Ratio (14-18) Glucose (74-106) mg/dL Lactic Acid 0.4 (0.4-2.0) mmol/L Calcium (8.5-10.1) mg/dL Magnesium (1.8-2.4) mg/dl C-Reactive Protein (<1.0) mg/dL Urine Color (Yellow) Urine Appearance (Clear) Urine pH (5.0-8.0) Ur Specific [place] (1.005-1.030) Urine Protein (Negative) Urine Glucose (UA) (Negative) Urine Ketones (Negative) Urine Occult Blood (Negative) Urine Nitrite (Negative) Urine Bilirubin (Negative) Urine Urobilinogen (0.2-1.0) Ur Leukocyte Esterase (Negative) Urine RBC (0-5) /hpf Urine WBC (0-5) /hpf Ur Epithelial Cells (0-5) /hpf Amorphous Sediment (NOT SEEN) /hpf Urine Bacteria (FEW) /hpf Urine Mucus (FEW) /hpf Med Orders - Current: Current Medications Aripiprazole (Abilify) 2 mg PO DAILY [facility] Last Admin: 08/23/18 09:58 Dose: 2 mg Folic Acid (Folic Acid) 1 mg PO DAILY [facility] Last Admin: 08/23/18 08:49 Dose: 1 mg Sodium Chloride (Normal Saline) 1,000 mls @ 1,000 mls/hr IV .BOLUS [facility] Last Admin: 08/21/18 11:14 Dose: 1,000 mls/hr Sodium Chloride (Normal Saline) 1,000 mls @ 125 mls/hr IV ASDIRECTED [facility] Last Admin: 08/22/18 20:49 Dose: 125 mls/hr Ceftriaxone Sodium 2 gm/ (Sodium Chloride) 100 mls @ 200 mls/hr IV Q24H [facility] Last Admin: 08/22/18 15:52 Dose: 200 mls/hr Lorazepam (Ativan) 0 mg IVPUSH Q4H PRN; Protocol PRN Reason: Anxiety Last Admin: 08/23/18 08:49 Dose: 2 mg Phenazopyridine HCl (Urinary Pain Relief) 95 mg PO TIDPC [facility] Last Admin: 08/23/18 08:49 Dose: 95 mg Sodium Chloride (Saline Flush) 10 ml FLUSH ASDIRECTED PRN PRN Reason: Keep Vein Open Last Admin: 08/21/18 11:14 Dose: 10 ml Thiamine HCl (Vitamin B-1) 100 mg PO BEDTIME [facility] Last Admin: 08/22/18 20:49 Dose: 100 mg Topiramate (Topamax) 25 mg PO BID [facility] Last Admin: 08/23/18 08:49 Dose: 25 mg Discontinued Medications Thiamine HCl 100 mg/ Sodium (Chloride) 101 mls @ 202 mls/hr IV DAILY ONE Stop: 08/22/18 09:29 Last Admin: 08/22/18 11:24 Dose: Not Given Thiamine HCl (Vitamin B-1) 100 mg IV DAILY [facility] Thiamine HCl (Vitamin B-1) 100 mg IVPUSH ONETIME ONE Stop: 08/22/18 09:01 Last Admin: 08/22/18 09:57 Dose: 100 mg - Exam Quality Assessment: DVT Prophylaxis General: Alert, Oriented, No Acute Distress HEENT: Pupils Equal, Pupils Reactive, EOMI Neck: Trachea Midline, No JVD Lungs: Clear to Auscultation, Normal Respiratory Effort Cardiovascular: Regular Rate, Regular Rhythm GI/Abdominal Exam: Normal Bowel Sounds, Soft, Non-Tender, No Organomegaly, No Distention (Female) Exam: Deferred Back Exam: Normal Inspection Extremities: Normal Inspection, Non-Tender, Normal Capillary Refill Skin: Warm Neurological: No New Focal Deficit Psy/Mental Status: Alert, Anxious - Problem List & Annotations (1) Urinary tract infection SNOMED Code(s): 84473769 Code(s): N39.0 - URINARY TRACT INFECTION, SITE NOT SPECIFIED Status: Acute Current Visit: Yes (2) Altered mental status SNOMED Code(s): 755206594 Code(s): R41.82 - ALTERED MENTAL STATUS, UNSPECIFIED Status: Acute Current Visit: Yes Qualifiers: Altered mental status type: somnolence Qualified Code(s): R40.0 - Somnolence (3) Benzodiazepine (tranquilizer) overdose SNOMED Code(s): 059213760 Code(s): T42.4X1A - POISONING BY BENZODIAZEPINES, ACCIDENTAL, INIT Status: Acute Current Visit: Yes (4) Hashish abuse SNOMED Code(s): 52447428 Code(s): F12.10 - CANNABIS ABUSE, UNCOMPLICATED Status: Acute Current Visit: Yes (5) Marijuana abuse SNOMED Code(s): 41577677 Code(s): F12.10 - CANNABIS ABUSE, UNCOMPLICATED Status: Acute Current Visit: Yes (6) Overdose SNOMED Code(s): 42242218 Code(s): T50.901A - POISONING BY UNSP DRUG/MEDS/BIOL SUBST, ACCIDENTAL, INIT Status: Acute Current Visit: Yes Qualifiers: Encounter type: initial encounter Injury intent: accidental or unintentional Qualified Code(s): T50.901A - Poisoning by unspecified drugs, medicaments and biological substances, accidental (unintentional), initial encounter (7) Suicide attempt by drug ingestion SNOMED Code(s): 54717647, 26741491 Code(s): T50.902A - POISONING BY UNSP DRUG/MEDS/BIOL SUBST, SELF-HARM, INIT Status: Acute Current Visit: Yes (8) Interstitial cystitis SNOMED Code(s): 503526386 Code(s): N30.10 - INTERSTITIAL CYSTITIS (CHRONIC) WITHOUT HEMATURIA Status : Acute Current Visit: No - Problem List Review Problem List Initiated/Reviewed/Updated: Yes - My Orders Last 24 Hours: My Active Orders 08/22/18 09:50 CULTURE URINE [RM] Routine 08/22/18 10:34 CIWAA Assessment [RC] Q6HR 08/22/18 10:35 LORazepam [Ativan] See Protocol IVPUSH Q4H PRN 08/22/18 16:00 Phenazopyridine [Urinary Pain Relief] 95 mg PO TIDPC cefTRIAXone [Rocephin] 2 gm Sodium Chloride 0.9% [Normal Saline] 100 ml IV Q24H 08/22/18 21:00 Thiamine [Vitamin B-1] 100 mg PO BEDTIME 08/23/18 08:00 CXR [Chest 1V Frontal] [CR] Routine 08/23/18 10:00 Consult for Substance Abuse [CONS] Routine 08/23/18 10:03 Magnesium Sulfate/Water [Magnesium Sulfate 4 GM in Water 100 ML] 4 gm Premix Bag 1 bag IV ONETIME 08/24/18 05:00 BMP [BASIC METABOLIC PANEL,BMP] [CHEM] DAILY CBC WITH AUTO DIFF [HEME] DAILY CRP [C-REACTIVE PROTEIN] [CHEM] DAILY LACTIC ACID [CHEM] DAILY MAGNESIUM [CHEM] DAILY 08/25/18 05:00 BMP [BASIC METABOLIC PANEL,BMP] [CHEM] DAILY CBC WITH AUTO DIFF [HEME] DAILY CRP [C-REACTIVE PROTEIN] [CHEM] DAILY LACTIC ACID [CHEM] DAILY MAGNESIUM [CHEM] DAILY 08/26/18 05:00 BMP [BASIC METABOLIC PANEL,BMP] [CHEM] DAILY CBC WITH AUTO DIFF [HEME] DAILY CRP [C-REACTIVE PROTEIN] [CHEM] DAILY LACTIC ACID [CHEM] DAILY MAGNESIUM [CHEM] DAILY - Plan Plan:: Impression: Acute mental status change--resolved Benzodiazepine overdose, suicide attempt History of Marijuana/Hashish abuse, query dependence AUTI Query Home environment, jorgito RODGERS RN Chronic Hx of Interstitial cystitis Plan: Rocephin Pyridium Advance diet Psych consult re; suicide attempt--pending Substance abuse consult--pending 24 hour hold/IP commitment Will need BUTCHER SCULLION/Urology as OP follow up CIWA protocol Consult SW/CM DVT/GI prophylaxis
[2018-08-23] MEDS: Sodium Chloride 0.9% 1,000 ML IV SCH ×2 (12:41→21:27)
[2018-08-23] MEDS: cefTRIAXone 2 GM in Sodium Chloride 0.9% 100 ML IV SCH (15:58)
[2018-08-23] MEDS: Thiamine 100 MG Tab PO SCH (21:59)
[2018-08-24] MEDS: Sodium Chloride 0.9% 1,000 ML IV SCH ×3 (05:11→21:43)
[2018-08-24] MEDS: Acetaminophen 325 MG Tab PO PRN ×2 (05:20→20:13)
[2018-08-24] MEDS: Phenazopyridine 95 MG Tab PO SCH ×3 (09:00→18:45)
[2018-08-24] MEDS: Folic Acid 1 MG Tab PO SCH (09:00)
[2018-08-24] MEDS: Topiramate 25 MG Tab PO SCH ×2 (09:00→20:13)
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
[2018-08-24] MEDS ORDERED: Magnesium Sulfate/Water 4 GM in Premix Bag 1 BAG IV ONE (10:00)
[2018-08-24] MEDS: Magnesium Oxide 400 MG Tab PO SCH (10:02)
--- NOTE | 2018-08-24 15:39 | PCM.PN ---
- General Info Date of Service: 08/24/18 Functional Status: Reports: Tolerating Diet (eats restricted diet, has minimal interest in food.) - Review of Systems General: Reports: No Symptoms HEENT: Reports: No Symptoms Pulmonary: Reports: No Symptoms Cardiovascular: Reports: No Symptoms Gastrointestinal: Reports: No Symptoms Genitourinary: Reports: No Symptoms Musculoskeletal: Reports: No Symptoms Skin: Reports: No Symptoms Neurological: Reports: No Symptoms Psychiatric: Reports: No Symptoms - Patient Data Vitals - Most Recent: Last Vital Signs Temp 36.9 C 08/24/18 12:00 Pulse 93 08/24/18 12:00 Resp 16 08/24/18 08:00 BP 123/79 08/24/18 12:00 Pulse Ox 99 08/24/18 12:02 Weight - Most Recent: 49.442 kg I&O - Last 24 Hours: Intake & Output 08/24/18 08/24/18 08/24/18 06:59 14:59 22:59 Intake Total 1628 1062 Output Total 1050 650 Balance 578 412 Lab Results Last 24 Hours: Laboratory Results - last 24 hr 08/24/18 08/24/18 08/24/18 Range/Units 05:34 05:34 05:35 WBC 3.91 L (3.98-10.04) K/mm3 RBC 3.94 L (3.98-5.22) M/mm3 Hgb 11.9 (11.2-15.7) gm/L Hct 35.1 (34.1-44.9) % MCV 89.1 (79.4-94.8) fl MCH 30.2 (25.6-32.2) pg MCHC 33.9 (32.2-35.5) g/dl RDW Std Deviation 41.0 (36.4-46.3) fL Plt Count 207 (182-369) K/mm3 MPV 10.3 (9.4-12.3) fl Neut % (Auto) 41.5 (34.0-71.1) % Lymph % (Auto) 43.2 (19.3-51.7) % [place] % (Auto) 12.8 H (4.7-12.5) % Eos % (Auto) 2.0 (0.7-5.8) Baso % (Auto) 0.5 (0.1-1.2) % Neut # (Auto) 1.62 (1.56-6.13) K/mm3 Lymph # (Auto) 1.69 (1.18-3.74) K/mm3 [place] # (Auto) 0.50 H (0.24-0.36) K/mm3 Eos # (Auto) 0.08 (0.04-0.36) K/mm3 Baso # (Auto) 0.02 (0.01-0.08) K/mm3 Sodium 138 (136-145) mEq/L Potassium 3.8 (3.5-5.1) mEq/L Chloride 108 H (98-107) mEq/L Carbon Dioxide 18 L (21-32) mEq/L Anion Gap 15.8 H (5-15) BUN 5 L (7-18) mg/dL Creatinine 0.6 (0.55-1.02) mg/dL Est Cr Clr Drug Dosing 113.93 mL/min Estimated GFR (MDRD) > 60 (>60) mL/min BUN/Creatinine Ratio 8.3 L (14-18) Glucose 72 L (74-106) mg/dL Lactic Acid 0.5 (0.4-2.0) mmol/L Calcium 8.3 L (8.5-10.1) mg/dL Magnesium 1.6 L (1.8-2.4) mg/dl C-Reactive Protein < 0.2 (<1.0) mg/dL [place] Results Last 24 Hours: Microbiology 08/22/18 09:50 Urine Culture - Final Urine, Clean Catch MIXED JHOANA SUGGESTIVE OF CONTAMINATION. Med Orders - Current: Current Medications Acetaminophen (Tylenol) 650 mg PO Q6H PRN PRN Reason: Pain Last Admin: 08/24/18 05:20 Dose: 650 mg Aripiprazole (Abilify) 2 mg PO DAILY [facility] Last Admin: 08/24/18 09:00 Dose: 2 mg Folic Acid (Folic Acid) 1 mg PO DAILY [facility] Last Admin: 08/24/18 09:00 Dose: 1 mg Sodium Chloride (Normal Saline) 1,000 mls @ 125 mls/hr IV ASDIRECTED [facility] Last Admin: 08/24/18 13:04 Dose: 125 mls/hr Ceftriaxone Sodium 2 gm/ (Sodium Chloride) 100 mls @ 200 mls/hr IV Q24H [facility] Last Admin: 08/23/18 15:58 Dose: 200 mls/hr Lorazepam (Ativan) 0 mg IVPUSH Q4H PRN; Protocol PRN Reason: Anxiety Last Admin: 08/23/18 22:06 Dose: 1 mg Magnesium Oxide (Magnesium Oxide) 800 mg PO DAILY [facility] Last Admin: 08/24/18 10:02 Dose: 800 mg Phenazopyridine HCl (Urinary Pain Relief) 95 mg PO TIDPC [facility] Last Admin: 08/24/18 12:00 Dose: 95 mg Sodium Chloride (Saline Flush) 10 ml FLUSH ASDIRECTED PRN PRN Reason: Keep Vein Open Last Admin: 08/21/18 11:14 Dose: 10 ml Thiamine HCl (Vitamin B-1) 100 mg PO BEDTIME [facility] Last Admin: 08/23/18 21:59 Dose: 100 mg Topiramate (Topamax) 25 mg PO BID [facility] Last Admin: 08/24/18 09:00 Dose: 25 mg Discontinued Medications Sodium Chloride (Normal Saline) 1,000 mls @ 1,000 mls/hr IV .BOLUS [facility] Last Admin: 08/21/18 11:14 Dose: 1,000 mls/hr Thiamine HCl 100 mg/ Sodium (Chloride) 101 mls @ 202 mls/hr IV DAILY ONE Stop: 08/22/18 09:29 Last Admin: 08/22/18 11:24 Dose: Not Given Magnesium Sulfate 4 gm/ Premix 100 mls @ 25 mls/hr IV ONETIME ONE Stop: 08/23/18 10:04 Last Admin: 08/23/18 10:44 Dose: 25 mls/hr Magnesium Sulfate 4 gm/ Premix 100 mls @ 25 mls/hr IV ONETIME ONE Stop: 08/23/18 14:59 Last Admin: 08/23/18 10:45 Dose: Not Given Magnesium Sulfate 4 gm/ Premix 100 mls @ 25 mls/hr IV ONETIME ONE Stop: 08/24/18 13:59 Last Admin: 08/24/18 10:02 Dose: 25 mls/hr Thiamine HCl (Vitamin B-1) 100 mg IV DAILY [facility] Thiamine HCl (Vitamin B-1) 100 mg IVPUSH ONETIME ONE Stop: 08/22/18 09:01 Last Admin: 08/22/18 09:57 Dose: 100 mg - Exam Quality Assessment: DVT Prophylaxis General: Alert, Oriented, Cooperative, No Acute Distress HEENT: Pupils Equal, Pupils Reactive, EOMI Neck: Trachea Midline, No JVD Lungs: Normal Respiratory Effort Cardiovascular: Regular Rate, Bradycardia GI/Abdominal Exam: Normal Bowel Sounds, Soft, Non-Tender, No Organomegaly, No Distention (Female) Exam: Deferred Back Exam: Normal Inspection Extremities: Normal Inspection, Non-Tender, Normal Capillary Refill Skin: Warm Neurological: No New Focal Deficit, Normal Gait, Normal Speech Psy/Mental Status: Alert, Anxious, Depressed - Problem List & Annotations (1) Urinary tract infection SNOMED Code(s): 76607791 Code(s): N39.0 - URINARY TRACT INFECTION, SITE NOT SPECIFIED Status: Acute Current Visit: Yes (2) Altered mental status SNOMED Code(s): 334616060 Code(s): R41.82 - ALTERED MENTAL STATUS, UNSPECIFIED Status: Acute Current Visit: Yes Qualifiers: Altered mental status type: somnolence Qualified Code(s): R40.0 - Somnolence (3) Benzodiazepine (tranquilizer) overdose SNOMED Code(s): 440148821 Code(s): T42.4X1A - POISONING BY BENZODIAZEPINES, ACCIDENTAL, INIT Status: Acute Current Visit: Yes (4) Hashish abuse SNOMED Code(s): 22385581 Code(s): F12.10 - CANNABIS ABUSE, UNCOMPLICATED Status: Acute Current Visit: Yes (5) Marijuana abuse SNOMED Code(s): 84024444 Code(s): F12.10 - CANNABIS ABUSE, UNCOMPLICATED Status: Acute Current Visit: Yes (6) Overdose SNOMED Code(s): 79476480 Code(s): T50.901A - POISONING BY UNSP DRUG/MEDS/BIOL SUBST, ACCIDENTAL, INIT Status: Acute Current Visit: Yes Qualifiers: Encounter type: initial encounter Injury intent: accidental or unintentional Qualified Code(s): T50.901A - Poisoning by unspecified drugs, medicaments and biological substances, accidental (unintentional), initial encounter (7) Suicide attempt by drug ingestion SNOMED Code(s): 56658404, 50599216 Code(s): T50.902A - POISONING BY UNSP DRUG/MEDS/BIOL SUBST, SELF-HARM, INIT Status: Acute Current Visit: Yes (8) Interstitial cystitis SNOMED Code(s): 319875213 Code(s): N30.10 - INTERSTITIAL CYSTITIS (CHRONIC) WITHOUT HEMATURIA Status : Acute Current Visit: No - Problem List Review Problem List Initiated/Reviewed/Updated: Yes - My Orders Last 24 Hours: My Active Orders 08/24/18 05:15 Acetaminophen [Tylenol] 650 mg PO Q6H PRN 08/24/18 10:00 Magnesium Oxide 800 mg PO DAILY 08/25/18 05:00 BMP [BASIC METABOLIC PANEL,BMP] [CHEM] DAILY CBC WITH AUTO DIFF [HEME] DAILY CRP [C-REACTIVE PROTEIN] [CHEM] DAILY LACTIC ACID [CHEM] DAILY MAGNESIUM [CHEM] DAILY 08/26/18 05:00 BMP [BASIC METABOLIC PANEL,BMP] [CHEM] DAILY CBC WITH AUTO DIFF [HEME] DAILY CRP [C-REACTIVE PROTEIN] [CHEM] DAILY LACTIC ACID [CHEM] DAILY MAGNESIUM [CHEM] DAILY - Plan Plan:: Impression: Acute mental status change--resolved Benzodiazepine overdose, suicide attempt History of Marijuana/Hashish abuse, query dependence AUTI Query Home environment, declined [employer]NA MARIA HARLEYline repairer tower Hx of Interstitial cystitis Plan: Rocephin Pyridium Advance diet Psych consult re; suicide attempt--pending Substance abuse consult--pending 24 hour hold/IP commitment Will need BRICK MASON/Urology as OP follow up CIWA protocol Consult SW/CM DVT/GI prophylaxis
[2018-08-24] MEDS: cefTRIAXone 2 GM in Sodium Chloride 0.9% 100 ML IV SCH (15:58)
[2018-08-24] MEDS ORDERED: Polyethylene Glycol 3350 Powder 17 GM Packet PO PRN (16:24)
[2018-08-24] MEDS: Thiamine 100 MG Tab PO SCH (20:13)
[2018-08-25] MEDS: Sodium Chloride 0.9% 1,000 ML IV SCH (05:48)
[2018-08-25] MEDS: Topiramate 25 MG Tab PO SCH ×2 (08:10→20:49)
[2018-08-25] MEDS: Phenazopyridine 95 MG Tab PO SCH (08:10)
[2018-08-25] MEDS: Magnesium Oxide 400 MG Tab PO SCH (08:10)
[2018-08-25] MEDS: Folic Acid 1 MG Tab PO SCH (08:10)
[2018-08-25] MEDS ORDERED: Sodium Chloride 0.9% 500 ML IV SCH (13:45)
[2018-08-25] MEDS: cefTRIAXone 2 GM in Sodium Chloride 0.9% 100 ML IV SCH (15:53)
[2018-08-25] MEDS: Thiamine 100 MG Tab PO SCH (20:49)
--- NOTE | 2018-08-25 20:53 | PCM.PN ---
- General Info Date of Service: 08/25/18 Subjective Update: Complained of vaginal burning, has had an occurrence before and reports using Lidocaine. Currently is getting treatment for a UTI. Functional Status: Reports: Pain Controlled, Tolerating Diet, Ambulating, Urinating - Review of Systems General: Reports: No Symptoms HEENT: Reports: No Symptoms Pulmonary: Reports: No Symptoms Cardiovascular: Reports: No Symptoms Gastrointestinal: Reports: No Symptoms Genitourinary: Reports: No Symptoms Musculoskeletal: Reports: No Symptoms Skin: Reports: No Symptoms Neurological: Reports: No Symptoms Psychiatric: Reports: No Symptoms - Patient Data Vitals - Most Recent: Last Vital Signs Temp 36.8 C 08/25/18 20:00 Pulse 88 08/25/18 12:00 Resp 14 08/25/18 20:00 BP 131/84 08/25/18 20:00 Pulse Ox 99 08/25/18 20:00 Weight - Most Recent: 49.124 kg I&O - Last 24 Hours: Intake & Output 08/25/18 08/25/18 08/25/18 06:59 14:59 22:59 Intake Total 2238 2050 620 Output Total 600 1200 400 Balance 1638 850 220 Lab Results Last 24 Hours: Laboratory Results - last 24 hr 08/25/18 08/25/18 08/25/18 Range/Units 04:37 04:37 04:37 WBC 3.67 L (3.98-10.04) K/mm3 RBC 4.02 (3.98-5.22) M/mm3 Hgb 12.0 (11.2-15.7) gm/L Hct 35.3 (34.1-44.9) % MCV 87.8 (79.4-94.8) fl MCH 29.9 (25.6-32.2) pg MCHC 34.0 (32.2-35.5) g/dl RDW Std Deviation 39.9 (36.4-46.3) fL Plt Count 214 (182-369) K/mm3 MPV 10.1 (9.4-12.3) fl Neut % (Auto) 39.0 (34.0-71.1) % Lymph % (Auto) 47.1 (19.3-51.7) % Harrison % (Auto) 11.2 (4.7-12.5) % Eos % (Auto) 1.9 (0.7-5.8) Baso % (Auto) 0.5 (0.1-1.2) % Neut # (Auto) 1.43 L (1.56-6.13) K/mm3 Lymph # (Auto) 1.73 (1.18-3.74) K/mm3 Harrison # (Auto) 0.41 H (0.24-0.36) K/mm3 Eos # (Auto) 0.07 (0.04-0.36) K/mm3 Baso # (Auto) 0.02 (0.01-0.08) K/mm3 Manual Slide Review Normal smear Sodium 141 (136-145) mEq/L Potassium 3.6 (3.5-5.1) mEq/L Chloride 109 H (98-107) mEq/L Carbon Dioxide 17 L (21-32) mEq/L Anion Gap 18.6 H (5-15) BUN 6 L (7-18) mg/dL Creatinine 0.6 (0.55-1.02) mg/dL Est Cr Clr Drug Dosing 111.15 mL/min Estimated GFR (MDRD) > 60 (>60) mL/min BUN/Creatinine Ratio 10.0 L (14-18) Glucose 79 (74-106) mg/dL Lactic Acid 0.6 (0.4-2.0) mmol/L Calcium 8.0 L (8.5-10.1) mg/dL Magnesium 2.0 (1.8-2.4) mg/dl C-Reactive Protein < 0.2 (<1.0) mg/dL Med Orders - Current: Current Medications Acetaminophen (Tylenol) 650 mg PO Q6H PRN PRN Reason: Pain Last Admin: 08/24/18 20:13 Dose: 650 mg Aripiprazole (Abilify) 2 mg PO DAILY [facility] Last Admin: 08/25/18 08:10 Dose: 2 mg Cephalexin (Keflex) 250 mg PO Q6HR [facility] Folic Acid (Folic Acid) 1 mg PO DAILY [facility] Last Admin: 08/25/18 08:10 Dose: 1 mg Ceftriaxone Sodium 2 gm/ (Sodium Chloride) 100 mls @ 200 mls/hr IV Q24H [facility] Last Admin: 08/25/18 15:53 Dose: 200 mls/hr Lorazepam (Ativan) 0 mg IVPUSH Q4H PRN; Protocol PRN Reason: Anxiety Last Admin: 08/23/18 22:06 Dose: 1 mg Magnesium Oxide (Magnesium Oxide) 800 mg PO DAILY [facility] Last Admin: 08/25/18 08:10 Dose: 800 mg Polyethylene Glycol (Miralax) 17 gm PO DAILY PRN PRN Reason: Constipation Last Admin: 08/24/18 17:49 Dose: 17 gm Saccharomyces Boulardii (Florastor) 250 mg PO DAILY [facility] Sodium Chloride (Saline Flush) 10 ml FLUSH ASDIRECTED PRN PRN Reason: Keep Vein Open Last Admin: 08/21/18 11:14 Dose: 10 ml Thiamine HCl (Vitamin B-1) 100 mg PO BEDTIME [facility] Last Admin: 08/25/18 20:49 Dose: 100 mg Topiramate (Topamax) 25 mg PO BID [facility] Last Admin: 08/25/18 20:49 Dose: 25 mg Discontinued Medications Sodium Chloride (Normal Saline) 1,000 mls @ 1,000 mls/hr IV .BOLUS [facility] Last Admin: 08/21/18 11:14 Dose: 1,000 mls/hr Sodium Chloride (Normal Saline) 1,000 mls @ 125 mls/hr IV ASDIRECTED [facility] Last Admin: 08/25/18 05:48 Dose: 125 mls/hr Thiamine HCl 100 mg/ Sodium (Chloride) 101 mls @ 202 mls/hr IV DAILY ONE Stop: 08/22/18 09:29 Last Admin: 08/22/18 11:24 Dose: Not Given Magnesium Sulfate 4 gm/ Premix 100 mls @ 25 mls/hr IV ONETIME ONE Stop: 08/23/18 10:04 Last Admin: 08/23/18 10:44 Dose: 25 mls/hr Magnesium Sulfate 4 gm/ Premix 100 mls @ 25 mls/hr IV ONETIME ONE Stop: 08/23/18 14:59 Last Admin: 08/23/18 10:45 Dose: Not Given Magnesium Sulfate 4 gm/ Premix 100 mls @ 25 mls/hr IV ONETIME ONE Stop: 08/24/18 13:59 Last Admin: 08/24/18 10:02 Dose: 25 mls/hr Sodium Chloride (Normal Saline) 500 mls @ 999 mls/hr IV .BOLUS [facility] Last Admin: 08/25/18 13:50 Dose: 999 mls/hr Phenazopyridine HCl (Urinary Pain Relief) 95 mg PO TIDPC [facility] Last Admin: 08/25/18 08:10 Dose: 95 mg Thiamine HCl (Vitamin B-1) 100 mg IV DAILY [facility] Thiamine HCl (Vitamin B-1) 100 mg IVPUSH ONETIME ONE Stop: 08/22/18 09:01 Last Admin: 08/22/18 09:57 Dose: 100 mg - Exam Quality Assessment: DVT Prophylaxis General: Alert, Oriented, Cooperative, No Acute Distress HEENT: Pupils Equal, Pupils Reactive, EOMI Neck: Trachea Midline, No JVD Lungs: Normal Respiratory Effort Cardiovascular: Regular Rate, Regular Rhythm GI/Abdominal Exam: Normal Bowel Sounds, Soft, Non-Tender, No Organomegaly, No Distention (Female) Exam: Deferred Back Exam: Normal Inspection Extremities: Normal Inspection, Non-Tender, Normal Capillary Refill Skin: Warm Neurological: No New Focal Deficit, Normal Gait, Normal Speech Psy/Mental Status: Alert, Anxious, Depressed - Problem List & Annotations (1) Urinary tract infection SNOMED Code(s): 79985669 Code(s): N39.0 - URINARY TRACT INFECTION, SITE NOT SPECIFIED Status: Acute Current Visit: Yes (2) Altered mental status SNOMED Code(s): 046656768 Code(s): R41.82 - ALTERED MENTAL STATUS, UNSPECIFIED Status: Acute Current Visit: Yes Qualifiers: Altered mental status type: somnolence Qualified Code(s): R40.0 - Somnolence (3) Benzodiazepine (tranquilizer) overdose SNOMED Code(s): 680356584 Code(s): T42.4X1A - POISONING BY BENZODIAZEPINES, ACCIDENTAL, INIT Status: Acute Current Visit: Yes (4) Hashish abuse SNOMED Code(s): 39439121 Code(s): F12.10 - CANNABIS ABUSE, UNCOMPLICATED Status: Acute Current Visit: Yes (5) Marijuana abuse SNOMED Code(s): 95228837 Code(s): F12.10 - CANNABIS ABUSE, UNCOMPLICATED Status: Acute Current Visit: Yes (6) Overdose SNOMED Code(s): 53694730 Code(s): T50.901A - POISONING BY UNSP DRUG/MEDS/BIOL SUBST, ACCIDENTAL, INIT Status: Acute Current Visit: Yes Qualifiers: Encounter type: initial encounter Injury intent: accidental or unintentional Qualified Code(s): T50.901A - Poisoning by unspecified drugs, medicaments and biological substances, accidental (unintentional), initial encounter (7) Suicide attempt by drug ingestion SNOMED Code(s): 07816610, 52274810 Code(s): T50.902A - POISONING BY UNSP DRUG/MEDS/BIOL SUBST, SELF-HARM, INIT Status: Acute Current Visit: Yes (8) Interstitial cystitis SNOMED Code(s): 643385085 Code(s): N30.10 - INTERSTITIAL CYSTITIS (CHRONIC) WITHOUT HEMATURIA Status : Acute Current Visit: No (9) Depression SNOMED Code(s): 92468279 Code(s): F32.9 - MAJOR DEPRESSIVE DISORDER, SINGLE EPISODE, UNSPECIFIED Status: Acute Current Visit: Yes - Problem List Review Problem List Initiated/Reviewed/Updated: Yes - My Orders Last 24 Hours: My Active Orders 08/24/18 21:26 Suicide Precautions [RC] Q15M One To One Therapy [BH] Routine 08/26/18 05:00 BMP [BASIC METABOLIC PANEL,BMP] [CHEM] DAILY CBC WITH AUTO DIFF [HEME] DAILY CRP [C-REACTIVE PROTEIN] [CHEM] DAILY LACTIC ACID [CHEM] DAILY MAGNESIUM [CHEM] DAILY 08/26/18 09:00 Saccharomyces Boulardii [Florastor] 250 mg PO DAILY cephALEXin [Keflex] 250 mg PO Q6HR - Plan Plan:: Impression: Acute mental status change--resolved Benzodiazepine overdose, suicide attempt History of Marijuana/Hashish abuse, query dependence AUTI Query Home environment, declined [facility] Depression with suicide ideation Chronic Hx of Interstitial cystitis Plan: Rocephin Pyridium Advance diet Psych consult-completed; will call [facility] for treatment Substance abuse consult--cancelled 24 hour hold/IP commitment Will need LE[employer]ODUCER/Urology as OP follow up [facility] protocol--cancelled Consult SW/CM DVT/GI prophylaxis
[2018-08-26] MEDS: Magnesium Oxide 400 MG Tab PO SCH (08:14)
[2018-08-26] MEDS: Topiramate 25 MG Tab PO SCH (08:14)
[2018-08-26] MEDS: Folic Acid 1 MG Tab PO SCH (08:14)
[2018-08-26] MEDS ORDERED: Saccharomyces Boulardii (Probiotic) 250 MG Cap PO SCH (09:00)
[2018-08-26] MEDS ORDERED: Potassium Chloride 20 MEQ Tab.ER PO SCH (09:30)
[2018-08-26] MEDS: LORazepam 2 MG/ML SDV IVPUSH PRN (12:12)
--- NOTE | 2018-08-26 13:12 | PCM.DCSUM1 ---
Discharge Summary - Hospital Course Free Text/Narrative:: Calorie Count result for 08/24/18: 863 kcal, 26 grams of protein. Intake is inadequate to meet energy and most nutrient needs. Nutritional needs assessed at 1560 kcal, 50 grams protein daily to sustain current weight, range 8941-1958 kcal, 41-55 grams of protein dependent on daily activity. RDN worked with patient today to try and find foods that we have available and that work in her diet. Note that IC diet (avoids caffeine, most dairy, cocoa, citrus, soy, holm , spicy foods, ETOH, MSG, artificial sugars, carbonated beverages) is workable but with her desire to follow vegan diet, it does make it a challenge to provide variety in her diet and meet nutritional needs. She does use a BCAA, vegan powder supplement at home but I do not have something Counseled patient to try and eat at least three meals, reviewed options that would provide her with more calories and protein and encouraged her to request. Diagnosis: Stroke: No - Discharge Data Discharge Disposition: DC/Tfer to Psych Hosp/Unit [facility] Condition: Good - Discharge Diagnosis/Problem(s) (1) Urinary tract infection SNOMED Code(s): 25515001 ICD Code: N39.0 - URINARY TRACT INFECTION, SITE NOT SPECIFIED Status: Acute Current Visit: Yes (2) Altered mental status SNOMED Code(s): 848383650 ICD Code: R41.82 - ALTERED MENTAL STATUS, UNSPECIFIED Status: Acute Current Visit: Yes Qualifiers: Altered mental status type: somnolence Qualified Code(s): R40.0 - Somnolence (3) Benzodiazepine (tranquilizer) overdose SNOMED Code(s): 652264668 ICD Code: T42.4X1A - POISONING BY BENZODIAZEPINES, ACCIDENTAL, INIT Status : Acute Current Visit: Yes (4) Hashish abuse SNOMED Code(s): 90290628 ICD Code: F12.10 - CANNABIS ABUSE, UNCOMPLICATED Status: Chronic Current Visit: Yes (5) Overdose SNOMED Code(s): 82558960 ICD Code: T50.901A - POISONING BY UNSP DRUG/MEDS/BIOL SUBST, ACCIDENTAL, INIT Status: Acute Current Visit: Yes Qualifiers: Encounter type: initial encounter Injury intent: accidental or unintentional Qualified Code(s): T50.901A - Poisoning by unspecified drugs, medicaments and biological substances, accidental (unintentional), initial encounter (6) Suicide attempt by drug ingestion SNOMED Code(s): 65287173, 47888681 ICD Code: T50.902A - POISONING BY UNSP DRUG/MEDS/BIOL SUBST, SELF-HARM, INIT Status: Acute Current Visit: Yes (7) Interstitial cystitis SNOMED Code(s): 407300849 ICD Code: N30.10 - INTERSTITIAL CYSTITIS (CHRONIC) WITHOUT HEMATURIA Status : Acute Current Visit: No (8) Depression SNOMED Code(s): 85778192 ICD Code: F32.9 - MAJOR DEPRESSIVE DISORDER, SINGLE EPISODE, UNSPECIFIED Status: Chronic Current Visit: Yes - Patient Summary/Data Consults: Consultations 08/21/18 19:05 Consult to Physician [CONS] Routine 08/21/18 19:49 Consult to Case Management/Surveillance Inspector [CONS] Routine 08/22/18 04:58 Consult SANE Nurse [CONS] Routine - Patient Instructions Diet: Regular Diet as Tolerated Activity: As Tolerated Driving: Do Not Drive Showering/Bathing: May Shower Notify Provider of: Fever, Increased Pain, Nausea and/or Vomiting - Discharge Plan *PRESCRIPTION DRUG MONITORING PROGRAM REVIEWED*: No *COPY OF PRESCRIPTION DRUG MONITORING REPORT IN PATIENT COOKIE: No Prescriptions/Med Rec: cephALEXin [Keflex] 250 mg PO Q6HR #20 cap ARIPiprazole [Abilify] 2 mg PO DAILY #14 tablet Folic Acid 1 mg PO DAILY #14 tablet Magnesium Oxide 800 mg PO DAILY #14 tablet Potassium Chloride [Klor-Con M20] 40 meq PO BID #2 tab.er Saccharomyces Boulardii [Florastor] 250 mg PO DAILY #10 cap Thiamine [Vitamin B-1] 100 mg PO BEDTIME #14 tablet Topiramate [Topamax] 25 mg PO BID #30 tablet Home Medications: Home Meds ARIPiprazole [Abilify] 2 mg PO DAILY #14 tablet 08/25/18 [Rx] Folic Acid 1 mg PO DAILY #14 tablet 08/25/18 [Rx] Magnesium Oxide 800 mg PO DAILY #14 tablet 08/25/18 [Rx] Saccharomyces Boulardii [Florastor] 250 mg PO DAILY #10 cap 08/25/18 [Rx] Thiamine [Vitamin B-1] 100 mg PO BEDTIME #14 tablet 08/25/18 [Rx] Topiramate [Topamax] 25 mg PO BID #30 tablet 08/25/18 [Rx] cephALEXin [Keflex] 250 mg PO Q6HR #20 cap 08/25/18 [Rx] Potassium Chloride [Klor-Con M20] 40 meq PO BID #2 tab.er 08/26/18 [Rx] Oxygen Therapy Mode: Room Air Patient Handouts: Generalized Anxiety Disorder, Adult, Living With Depression, Panic Attack, [id number] Forms: ED Department Discharge Referrals: David Young MD [Ordering Only Provider] - 09/18/18 3:15 am (This appt. is in [facility], Urology. ) Shahnaz Mars MD [Physician] - 10/06/18 9:00 am (This appt. is with gynocologist at [facility]. Please arrive at 0845 to check in.) PCP,None [Primary Care Provider] - - Patient Data Vitals - Most Recent: Last Vital Signs Temp 36.9 C 08/26/18 12:00 Pulse 98 08/26/18 12:00 Resp 16 08/26/18 12:00 BP 126/89 08/26/18 12:00 Pulse Ox 100 08/26/18 12:00 Weight - Most Recent: 49.124 kg I&O - Last 24 hours: Intake & Output 08/25/18 08/26/18 08/26/18 22:59 06:59 14:59 Intake Total 920 800 Output Total 400 800 Balance 520 0 Lab Results - Last 24 hrs: Laboratory Results - last 24 hr 08/26/18 08/26/18 08/26/18 Range/Units 04:33 04:33 04:33 WBC 3.59 L (3.98-10.04) K/mm3 RBC 4.43 (3.98-5.22) M/mm3 Hgb 13.2 (11.2-15.7) gm/L Hct 38.5 (34.1-44.9) % MCV 86.9 (79.4-94.8) fl MCH 29.8 (25.6-32.2) pg MCHC 34.3 (32.2-35.5) g/dl RDW Std Deviation 39.9 (36.4-46.3) fL Plt Count 222 (182-369) K/mm3 MPV 10.2 (9.4-12.3) fl Neut % (Auto) 43.4 (34.0-71.1) % Lymph % (Auto) 42.6 (19.3-51.7) % Dare % (Auto) 11.4 (4.7-12.5) % Eos % (Auto) 1.7 (0.7-5.8) Baso % (Auto) 0.6 (0.1-1.2) % Neut # (Auto) 1.56 (1.56-6.13) K/mm3 Lymph # (Auto) 1.53 (1.18-3.74) K/mm3 Dare # (Auto) 0.41 H (0.24-0.36) K/mm3 Eos # (Auto) 0.06 (0.04-0.36) K/mm3 Baso # (Auto) 0.02 (0.01-0.08) K/mm3 Sodium 143 (136-145) mEq/L Potassium 3.3 L (3.5-5.1) mEq/L Chloride 111 H (98-107) mEq/L Carbon Dioxide 18 L (21-32) mEq/L Anion Gap 17.3 H (5-15) BUN 5 L (7-18) mg/dL Creatinine 0.6 (0.55-1.02) mg/dL Est Cr Clr Drug Dosing 111.15 mL/min Estimated GFR (MDRD) > 60 (>60) mL/min BUN/Creatinine Ratio 8.3 L (14-18) Glucose 94 (74-106) mg/dL Lactic Acid 0.5 (0.4-2.0) mmol/L Calcium 8.9 (8.5-10.1) mg/dL Magnesium 2.1 (1.8-2.4) mg/dl C-Reactive Protein < 0.2 (<1.0) mg/dL Med Orders - Current: Current Medications Acetaminophen (Tylenol) 650 mg PO Q6H PRN PRN Reason: Pain Last Admin: 08/24/18 20:13 Dose: 650 mg Aripiprazole (Abilify) 2 mg PO DAILY [facility] Last Admin: 08/26/18 08:15 Dose: 2 mg Cephalexin (Keflex) 250 mg PO Q6H [facility] Folic Acid (Folic Acid) 1 mg PO DAILY [facility] Last Admin: 08/26/18 08:14 Dose: 1 mg Lorazepam (Ativan) 0 mg IVPUSH Q4H PRN; Protocol PRN Reason: Anxiety Last Admin: 08/26/18 12:12 Dose: 1 mg Magnesium Oxide (Magnesium Oxide) 800 mg PO DAILY [facility] Last Admin: 08/26/18 08:14 Dose: 800 mg Polyethylene Glycol (Miralax) 17 gm PO DAILY PRN PRN Reason: Constipation Last Admin: 08/24/18 17:49 Dose: 17 gm Potassium Chloride (Klor-Con M20) 40 meq PO BID [facility] Last Admin: 08/26/18 10:45 Dose: 40 meq Saccharomyces Boulardii (Florastor) 250 mg PO DAILY [facility] Last Admin: 08/26/18 08:14 Dose: 250 mg Sodium Chloride (Saline Flush) 10 ml FLUSH ASDIRECTED PRN PRN Reason: Keep Vein Open Last Admin: 08/21/18 11:14 Dose: 10 ml Thiamine HCl (Vitamin B-1) 100 mg PO BEDTIME [facility] Last Admin: 08/25/18 20:49 Dose: 100 mg Topiramate (Topamax) 25 mg PO BID [facility] Last Admin: 08/26/18 08:14 Dose: 25 mg Discontinued Medications Sodium Chloride (Normal Saline) 1,000 mls @ 1,000 mls/hr IV .BOLUS [facility] Last Admin: 08/21/18 11:14 Dose: 1,000 mls/hr Sodium Chloride (Normal Saline) 1,000 mls @ 125 mls/hr IV ASDIRECTED [facility] Last Admin: 08/25/18 05:48 Dose: 125 mls/hr Thiamine HCl 100 mg/ Sodium (Chloride) 101 mls @ 202 mls/hr IV DAILY ONE Stop: 08/22/18 09:29 Last Admin: 08/22/18 11:24 Dose: Not Given Ceftriaxone Sodium 2 gm/ (Sodium Chloride) 100 mls @ 200 mls/hr IV Q24H [facility] Last Admin: 08/25/18 15:53 Dose: 200 mls/hr Magnesium Sulfate 4 gm/ Premix 100 mls @ 25 mls/hr IV ONETIME ONE Stop: 08/23/18 10:04 Last Admin: 08/23/18 10:44 Dose: 25 mls/hr Magnesium Sulfate 4 gm/ Premix 100 mls @ 25 mls/hr IV ONETIME ONE Stop: 08/23/18 14:59 Last Admin: 08/23/18 10:45 Dose: Not Given Magnesium Sulfate 4 gm/ Premix 100 mls @ 25 mls/hr IV ONETIME ONE Stop: 08/24/18 13:59 Last Admin: 08/24/18 10:02 Dose: 25 mls/hr Sodium Chloride (Normal Saline) 500 mls @ 999 mls/hr IV .BOLUS [facility] Last Admin: 08/25/18 13:50 Dose: 999 mls/hr Phenazopyridine HCl (Urinary Pain Relief) 95 mg PO TIDPC [facility] Last Admin: 08/25/18 08:10 Dose: 95 mg Thiamine HCl (Vitamin B-1) 100 mg IV DAILY [facility] Thiamine HCl (Vitamin B-1) 100 mg IVPUSH ONETIME ONE Stop: 08/22/18 09:01 Last Admin: 08/22/18 09:57 Dose: 100 mg
[2018-08-26] MEDS ORDERED: Cephalexin 250 MG Cap PO SCH (16:00)
== END 2018-08-26 16:00 | DRG 918 ==
LOC: JD.ED 10:49 → JD.ICU 18:37 → EEVIPCON 18:37
PROVIDERS: ADMIT Internal Medicine Cardiovascular Disease; ATTEND Internal Medicine Cardiovascular Disease
DX: T42.4X2A Poisoning by benzodiazepines, intentional self-harm, initial encounter (principal); F31.60 Bipolar disorder, current episode mixed, unspecified; T42.4X1A Poisoning by benzodiazepines, accidental (unintentional), initial encounter; R41.82 Altered mental status, unspecified; N30.10 Interstitial cystitis (chronic) without hematuria; K21.9 Gastro-esophageal reflux disease without esophagitis; M19.90 Unspecified osteoarthritis, unspecified site; F41.9 Anxiety disorder, unspecified; F12.10 Cannabis abuse, uncomplicated; M79.7 Fibromyalgia; F43.10 Post-traumatic stress disorder, unspecified; F60.89 Other specific personality disorders; R07.9 Chest pain, unspecified; Z88.1 Allergy status to other antibiotic agents; Z88.8 Allergy status to other drugs, medicaments and biological substances; Z79.899 Other long term (current) drug therapy; Z87.442 Personal history of urinary calculi
CPT/HCPCS: 36415; 71045; 71045-26; 80048; 80053; 80306; 81001; 82962; 83605; 83735; 84703; 85025; 86140; 87086; 93005; 93010; 96360; 99285; 99285-25; A9270-GY; G0480; J0696; J2060; J3411; J3475; J7030; J7040